=== PATIENT | male | born 1935 | race Caucasian/White ===

== ENCOUNTER 2017-11-07 18:32 | Inpatient (IN) | payer MEDICARE, OTHER, SELFPAY ==
[2017-11-01 10:20] VITALS: BMI 22.6
[2017-11-07] VITALS (13 sets, daily range): BP systolic 109–129; BP diastolic 58–82; PULSE 60–97; RESP 10–22; TEMP 36–36.8; O2SAT 94–98; BMI 22.6
[2017-11-07] MEDS: LACTATED RINGERS 1,000 ML 42 ML IV (11:22)
[2017-11-07] MEDS: fentaNYL 100 MCG/2 ML INJ 25 MCG IV ×3 (12:05→12:43)
--- NOTE | 2017-11-07 12:48 | PM.PREOP ---
Pre-operative Note Interval Note Pre-op Check: Yes History & Physical Reviewed by Physician and Yes Exam Performed Changes: No
[2017-11-07] MEDS: CEFAZOLIN 2 GM/100 ML FROZ.PIGGY IV ×2 (13:26→21:46)
--- NOTE | 2017-11-07 14:03 | SUR.OPER ---
Prone on gel padded OR table. Head in foam face cradle per anesthesia. Arms padded and tucked at sides per surgeon. Gel pad to knees, pillows x2 under low legs. Toes free. Padded safety strap to thighs over blanket and tape to low legs over blanket to secure. Yellow gel rolls under torso per surgeon.
[2017-11-07] MEDS: BUPIVACAINE 0.25% W/ EPI VIAL 50 ML INJ (14:16)
[2017-11-07] MEDS: BUPIVACAINE LIPOSOME 266 MG/20 ML VIAL INJ (14:16)
[2017-11-07] MEDS: THROMBIN (BOVINE) 5,000 UNIT VIAL 5000 UNIT TOP (14:19)
[2017-11-07] MEDS: SODIUM CHLORIDE 0.9% 1,000 ML, GENTAMICIN 80 MG IRR (14:20)
[2017-11-07] MEDS: VANCOMYCIN 1,000 MG VIAL 1000 MG TOP (14:20)
--- NOTE | 2017-11-07 17:05 | P.OP_ITS ---
Operative Date/Time/Diagnoses Date of procedure: 11/07/17 Time of procedure: 16:59 Pre-op diagnosis: Cervical stenosis with myelopathy Procedure & Clinicians Procedure: C4-5, C5-6, C6-7 laminectomy Use of microscope Same procedure as scheduled: Yes Indications: [age] year old male with intractable pain from stenosis. They had failed conservative management and requested operative intervention. Risks and benefits of surgery were discussed and appropriate consents were obtained. Surgeon: Daryl Solano Printing Technician: Kortney Cabrera Anesthesia Type: General Operative Notes Findings: none Closure Type: primary Implants & Drains: HV drain Applied: catheter Estimated Blood Loss (mL): 200 Blood products transfused: none Procedure in detail: Patient was brought to the operating room and intubated on the table. He was rolled over on the well-padded prone position on the table. A time-out was performed. Preoperative antibiotics were given. The neck was prepped and draped in standard sterile fashion. Using fluoroscopy for localization, a 6 cm incision was made in the midline. We used Bovie to dissect through the cervical nuchal fascia and then subperiosteally dissect the paraspinal muscles off the right side. A marker was placed and x-ray was taken to confirm positioning. We then brought in the microscope. A right-sided laminectomy was performed at C4 -5, C5-6 and C6-7. We did extensive foraminotomies at all 3 levels to open up the neural foramen. The C4-5 level had extremely large facet cyst occupying almost half the spinal canal. We carefully had to dissect this off the dura. At the end of this the canal was wide open and the dura had filled back in the divot where the facet cyst had been. Everything was open when probed with a nerve hook. There was a fair amount of bleeding coming from the epidurals in the neural foramen but this brought under control with Gel-Foam and patties in the foramen as well as using FloSeal. The wound was copiously irrigated. The fascia was then closed in layers. Vancomycin powder was placed in the wound. The superficial and the skin were closed. Sterile dressing was placed. Patient was rolled over extubated brought to recovery room with no complications. Complications: none Condition: stable Disposition: PACU Plan for aftercare: Overnight admission for 1-2 days.
[2017-11-07] MEDS: HYDROMORPHONE 1 MG INJ 0.5 MG IV (18:35)
[2017-11-07] MEDS: LACTATED RINGERS 1,000 ML 125 ML IV (19:28)
[2017-11-07] MEDS: IPRATROPIUM 0.5 MG/3 ML NEB INH (19:50)
[2017-11-07] MEDS: SENNOSIDES 8.6 MG TABLET 17.2 MG PO (21:45)
[2017-11-07] MEDS: ACETAMINOPHEN 325 MG TABLET 975 MG PO (21:45)
[2017-11-07] MEDS: DOCUSATE 100 MG CAPSULE PO (21:45)
[2017-11-08] MEDS: LACTATED RINGERS 1,000 ML 125 ML IV (02:42)
[2017-11-08 03:21] VITALS: BP 106/69; PULSE 85; RESP 16; TEMP 36.7; O2SAT 96
[2017-11-08] MEDS: CEFAZOLIN 2 GM/100 ML FROZ.PIGGY IV (04:55)
[2017-11-08] MEDS: HYDROMORPHONE 1 MG INJ 0.2 MG IV (05:44)
--- NOTE | 2017-11-08 05:47 | PC.NURSE ---
pt alert and oriented. R.shoulder pain 5/10, administered 0.2mg IV dilaudid. pt reports he is allergic to oxycodone, but he takes percocet at home.
[2017-11-08 06:19] LABS: Hematocrit 30.3 % (41-53); Hemoglobin 10.3 g/dL (13.5-17.5)
--- NOTE | 2017-11-08 07:35 | PM.PNPO.1 ---
Subjective Date Patient Seen: 11/08/17 Time Patient Seen: 07:35 Interval history: The hands feel less tingly but he still is having a fair amount of pain in the right arm. Exam Vital Signs (past 8 hours): - 11/07/17 23:45 11/08/17 03:21 Temperature 98.1 F 98.0 F Pulse Rate 97 H 85 Respiratory Rate 22 16 Blood Pressure 115/73 106/69 Pulse Oximetry 97 96 Oxygen Delivery Method Room Air Oxygen Flow Rate 2 Const Orientation: alert and oriented x3 Skin Other: Dressing mild drainage. No drainage in hemo VAC. 5/5 motor both upper extremities except for 4/5 right sanding machine tender and intrinsics, unchanged Objective Labs Result Diagrams: 11/08/17 06:00 Labs: Laboratory Results - last 24 hr 11/08/17 06:00 Hgb 10.3 L Hct 30.3 L Assessment & Plan Post-op Postoperative Procedures Operation Date: 11/07/17 12:15 Actual Procedures Side Surgeon p C4-5,C5-6,C6-7 Posterior Laminectomies Daryl Solano MD stable after surgery. We will get him up with physical therapy. If he is doing well discharge home today. We discussed his anticoagulation. He can restart his Lovenox this evening, but I wanted at least 24 hr after surgery before starting anticoagulation. He also is going to start back on the Coumadin today. Quality VTE Deep Vein Thrombosis/Pulmonary Embolism Present on Admission: No
[2017-11-08 07:45] VITALS: BP 105/64; PULSE 76; RESP 16; TEMP 36.5; O2SAT 97
[2017-11-08] MEDS: DOCUSATE 100 MG CAPSULE PO (09:24)
[2017-11-08] MEDS: ACETAMINOPHEN 325 MG TABLET 975 MG PO (09:24)
[2017-11-08] MEDS: IPRATROPIUM 0.5 MG/3 ML NEB INH (09:24)
[2017-11-08] MEDS: ATORVASTATIN 20 MG TABLET 40 MG PO (09:24)
[2017-11-08 09:25] VITALS: PULSE 73; RESP 13; O2SAT 97
[2017-11-08] MEDS: ONDANSETRON 4 MG/2 ML INJ IV (09:28)
--- NOTE | 2017-11-08 09:30 | OT.IP.EVAL ---
Current Diagnoses Spinal stenosis, cervical region (11/07/17) Surgery Performed Operation Date: 11/07/17 12:15 Actual Procedures p C4-5,C5-6,C6-7 Posterior Laminectomies - Daryl Solano MD Past Medical History (Last Updated 11/01/17 @ 11:59 by Cyndie Barclay, RN) 3rd brn w/ loss-fngr/thmb (Acute) Asthma (Acute) BPH (benign prostatic hyperplasia) (Acute) Back pain (Acute) Bifascicular block (Acute ~2013) Bruises easily (Acute) Cervical stenosis of spinal canal (Acute) Chronic back pain (Acute) Depression (Acute) Dyspnea (Acute) Facet hypertrophy of cervical region (Acute) GERD (gastroesophageal reflux disease) (Acute) History of anemia (Acute) History of cardioversion (Acute) History of migraine headaches (Acute) Hyperkalemia (Acute) Hyperlipidemia (Acute) Intractable back pain (Acute) Leg swelling (Acute) Leg weakness, bilateral (Acute) Mitral valve prolapse (Acute) Neck pain (Acute) Numbness and tingling in both hands (Acute) Osteoarthritis (Acute) Pacemaker (Acute 05/06/14) Paroxysmal atrial flutter (Acute) Primary hypothyroidism (Acute) Prosthetic mitral valve regurgitation (Acute) SSS (sick sinus syndrome) (Acute) Stroke (Acute) Suspicious (Acute) Weakness of both arms (Acute) Weight loss (Acute) Surgical History (Last Updated 11/01/17 @ 11:28 by Cyndie Barclay, RN) H/O hernia repair (Acute) H/O maze procedure (Acute) H/O tricuspid valve repair (Acute) Previous back surgery (Acute) S/P TURP (status post transurethral resection of prostate) (Acute) Occupational Therapy Inpatient Evaluation/Re-Eval M1 PT/OT-IP Prior Functional Status Start: 11/08/17 15:28 Freq: NEEDED Status: Active Protocol: Document 11/08/17 09:30 PJM (Rec: 11/08/17 15:55 PJM [id number]) Medical Review Prior Functional Status Medical History Reviewed Yes Diet/Fluid Consistency Regular Communication able make needs known Mobility and Gait pt stated that he is modified independent with all mobilities and ambulation using 4WW outdoors and either uses 4WW/FWW indoors. Activities of Daily Living and IADL's modified independent with all ADLs Prior Functional Level (Other details) has a ingredient scaler that comes in to assist with cleaning, laundry grocery shopping 1x week Social History Household Members none Living Arrangements House Number of Floors (Floors) One Floor Number of Stairs To Enter/Railing? 2 with B rails Home Environment Walk in Shower Home Equipment Front Wheel Walker Four Wheel Walker Shower Seat without Backrest Hand Held Shower Long Handled Shoe [employer] Staffing Account Manager Grab Bars In Shower Employment Status Retired Additional Social History Comment pt declines sock aid as he does not wear socks often, has slip on shoes M2 OT-IP Current Condition Start: 11/08/17 15:28 Freq: Status: Active Protocol: Document 11/08/17 09:30 PJM (Rec: 11/08/17 15:55 PJM [id number]) Occupational Therapy Current Condition Current Condition Evaluation Date 11/08/17 Treatment Diagnosis decreased self care and functional mobility after C4-7 lami Diagnosis Onset Date 11/07/17 Post Operative Precautions Cervical Spine Precautions Soft Collar for Comfort Soft Collar at all Times No Heavy Lifting Log Roll M3 OT- IP Subjective and Pain Start: 11/08/17 15:28 Freq: Status: Active Protocol: Document 11/08/17 09:30 PJM (Rec: 11/08/17 15:55 PJM [id number]) OT- Subjective Occupational Therapy Visit Type Type Initial Evaluation Visit Start Time 08:51 Visit Stop Time 09:30 Total Visit Minutes 39 Notes session discontinued due to nausea/vomiting, RN in to provide IV anti nausea meds Occupational Therapy Visit Comments Patient Comments My sister and S.O. will stay with me for a week when I get home. 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) OT Pain Assessment Pain When Pain Assessed After Treatment Pain Present Pain Present Pain Reported Location Right Shoulder Intensity 3 Scale Used Numeric (1 - 10) Description Aching Pain Behaviors Facial Grimacing Guarding Management Techniques Apply Cold Re-positioning Timing of Activity with Medications Posterior Neck Intensity 2 Scale Used Numeric (1 - 10) Description Acute Pain Behaviors Guarding Management Techniques Re-positioning Timing of Activity with Medications M4 OT- IP ADL's Start: 11/08/17 15:28 Freq: Status: Active Protocol: Document 11/08/17 09:30 PJM (Rec: 11/08/17 15:55 PJM [id number]) OT KWS-Mems-Aktxnlo General Evaluation Self-Feeding Ability Independent OT ADL-Dressing General Eval Lower Body Dressing Ability Minimal Assistance Areas Needing Assistance Underpants/Brief Shoes Assistive Devices Dressing Assistive Devices Staffing Account Manager Comments OT Dressing Comments Pt does not wear socks often. Pt SBA donning slip on shoes. Min assist to don brief with motorcoach operator after roland removed by RN. M5 OT- IP IADL's Start: 11/08/17 15:28 Freq: Status: Active Protocol: Document 11/08/17 09:30 PJM (Rec: 11/08/17 15:55 PJ [id number]) OT-Instrumental Activities of Daily Living Deficits IADL Deficits Identified Deficits Home Safety Awareness Awareness of Need for Assistance at Home Good Awareness Ability to Problem Solve Emergency Able to Problem Solve Situations Medication Management Medication Management No Deficits Identified Money Management Money Management No Deficits Identified Meal Preparation Meal Preparation Caregiver Provides Assist Meal Preparation Comments S.O. and sister to assist PRN Children'S Ministry Director Children'S Ministry Director Caregiver Provides Assist Children'S Ministry Director Comments S.O., sister and paid ingredient scaler to assist PRN Driving Driving Caregiver Provides Assist Driving Comments S.O. and sister to assist until pt able M6 OT- IP Functional Cognition Start: 11/08/17 15:28 Freq: Status: Active Protocol: Document 11/08/17 09:30 PJM (Rec: 11/08/17 15:55 [facility] [id number]) Cognitive Factors Limiting Selfcare Function Cognitive Ability Level of Alertness Alert Patient Orientation Name Age Birthday Month Date Year Day of Week Place Situation Attention Span Ability Capable of Focused Attention Capable of Sustained Attention Ability to Follow Commands Able to Follow One Step Commands Memory Description No Deficits Noted Safety Awareness No Deficits Noted Problem Solving Ability Needs Assist to Identify Solutions Cognitive Comments Cognitive Assessment Comments Pt appears to be at cognitive baseline. OT- Vision and Hearing OT- Hearing Assessment OT- Hearing Assessment WFL OT- Vision Assessment Visual Acuity Glasses All The Time Vision Assessment Comments Pt reports some blurred vision since surgery, may be medication related. M7 OT- IP Mobility and Balance Start: 11/08/17 15:28 Freq: Status: Active Protocol: Document 11/08/17 09:30 PJM (Rec: 11/08/17 15:55 PJ [id number]) OT- Bed Mobility Assessment Rolling Type of Rolling Roll to Right Level of Assistance Independent Head of Bed Elevated Supine to Sit Supine to Sit Assist Independent Scooting Scooting to Edge of Bed Independent OT-Transfer Assessment Sit to and From Stand Sit to and from Stand Contact Guard Assistance Transfers Transfer Ability Contact Guard Assistance Technique Transfer Destination Chair Transfer Technique Stand Step Pivot Devices Transfer Assistive Devices Gait Belt Front Wheeled Walker Comments Mobility Comments Pt sleeps with 30 degree wedge on bed due to GERD. Provided education re: C spine precautions and log rolling. OT- Gait Assessment Comments Gait Ability Comments See P.T. assessment OT- Balance Assessment Sitting Balance and Reactions Static Sitting Balance Ability Good Dynamic Sitting Balance Ability Fair Standing Balance and Reactions Static Standing Balance Ability Good Dynamic Standing Balance Ability Fair Comments Other Balance Tests/Deviations/Treatment with FWW : M8 OT- IP Objective Assessments Start: 11/08/17 15:28 Freq: Status: Active Protocol: Document 11/08/17 09:30 PJM (Rec: 11/08/17 15:55 PJM [id number]) OT Gross Range of Motion Upper Extremity Range of Motion Assessment Right Impaired ROM Impairments Self limits R shoulder scaption to about 70 degrees due to chronic radiculopathy OT Strength Upper Extremity Strength Assessment Right Impaired Shoulder R NT due to pain, recent surgery Elbow NT Hand 4/5 Hand Model Photographers' Strength Hand Dominance Right Comments Strength Comments Pt has intrinsic weakness and palmar atrophy in B hands R > L. R hand gross grasp 4/5, lumbricals 4-/5. Pt can oppose all fingers to R thumb with min difficulty opposing to 5th finger. Pt uses tenodesis to facilitate MP/IP extension in R hand. OT- Coordination Assessment Upper Extremity Finger to Nose Test Right UE Impaired Finger Tapping Test Right UE Impaired Comments Coordination Comments RUE gross coordination impaired by shoulder pain and fine coordination impaired by intrinsic weakness and numbness in all fingertips. OT-Muscle Tone Assessment Muscle Tone WNL Yes OT Sensation Assessment Location Left All Fingers Light Touch Impaired Right All Fingers Light Touch Impaired Sensation Description Numbness Comments Summary Comments Pt reports all fingertips numb in B hands R>L Edema Edema Absent Edema Comments in BUE's M9 OT- IP Assessment and Plan Start: 11/08/17 15:28 Freq: Status: Active Protocol: Document 11/08/17 09:30 PJM (Rec: 11/08/17 15:55 PJM [id number]) OT Summary Assessment and Plan Potential Rehabilitation Potential Good Analytic Complexity at Evaluation Moderate Summary OT Impairments Pain Range of Motion Strength Balance Coordination Sensation Functional Mobility Dressing Toileting Bathing Toilet Transfers Shower Transfers Assessment Summary Moderate complexity OT assessment due to neurologic deficits in BUE due to C spine compression. Participation limited this session by nausea /vomiting. RN aware. Pt currently has performance deficits in transfers with P.T. eval of gait pending. Pt also has performance deficits in dressing, bathing and toileting. Plan 1 additional OT visit later this AM when nausea improves and pt's sister and S.O. here for education. Goals Grooming Goal Standby Assistance Dressing Goal Standby Assistance Bathing Goal Standby Assistance Toilet Transfer Goal Standby Assistance Shower Transfer Goal Contact Guard Assistance Patient/Caregiver Education Goal Demonstrate Post-Op Precautions Caregiver Independent Assisting Patient Days to Meet Goals 1 Frequency of Treatment Frequency Of Treatment Twice a Day Treatment Plan OT Treatment Plan ADL Training Patient/Family Education Discharge Planning Discharge Recommendations OT Discharge Recommendations Home with 10/10 Assist Other Discharge Recommendations OT services including R hand strengthening and self care, IADL training
--- NOTE | 2017-11-08 10:07 | PT.IPTN ---
Current Diagnoses Spinal stenosis, cervical region (11/07/17) Surgery Performed Operation Date: 11/07/17 12:15 Actual Procedures p C4-5,C5-6,C6-7 Posterior Laminectomies - Daryl Solano MD Physical Therapy Treatment Note M2 PT-IP Current Condition Start: 11/08/17 11:27 Freq: NEEDED Status: Active Protocol: Document 11/08/17 10:07 AB (Rec: 11/08/17 11:47 AB [id number]) Physical Therapy Current Condition Current Condition Evaluation Date 11/08/17 Treatment Diagnosis s/p C4-5, C5-6, C6-7 laminectomy; ms weakness Onset Date 11/07/17 Precautions Cervical Spine Precautions Soft Collar for Comfort Soft Collar at all Times Rigid Collar No Heavy Lifting Log Roll Brace soft collar for comfort M3 PT-IP Subjective Start: 11/08/17 11:27 Freq: NEEDED Status: Active Protocol: Document 11/08/17 10:07 AB (Rec: 11/08/17 11:47 AB [id number]) Subjective Physical Therapy Visit Type Type Initial Evaluation Visit Start Time 10:07 Visit Stop Time 10:47 Total Visit Minutes 40 Number of TELEGRAPHIC SERVICE DISPATCHER Visits 0 Physical Therapy Visit Comments Patient Comments pt agreeable to do PT and wants to go home Therapy Pain Assessment Pain When Pain Assessed During Mobility Pain Present Pain Present Pain Reported Location Right Shoulder Intensity 8 Scale Used Numeric (1 - 10) Pain Management Techniques Apply Cold Timing of Activity with Medications M4 PT-IP Mobility and Gait Start: 11/08/17 11:27 Freq: NEEDED Status: Active Protocol: Document 11/08/17 10:07 AB (Rec: 11/08/17 11:47 AB [id number]) PT-Bed Mobility Assessment Rolling Type of Rolling Log Rolling Level of Assist Standby Assistance Supine to Sit Supine to Sit Standby Assistance Sit to Supine Sit to Supine Standby Assistance Scooting Scooting to Edge of Bed Standby Assistance PT-Transfer Assessment Sit to and From Stand Sit to and from Stand Contact Guard Assistance Equipment Transfer Assistive Device Gait Belt Front Wheeled Walker Orthotic/Prosthetic Devices or Brace: Yes Transfers Transfer Destination Bed Transfer Technique Stand Step Pivot Transfer Ability Level of Assist Contact Guard Assistance Gait Assessment Gait Gait Assistance Required: Contact Guard Assist Distance (Feet) (feet) 125 Able to Maintain Weight Bearing Status Yes During Gait Assistive Devices Assistive Device Gait Belt Front Wheeled Walker Orthotic/Prosthetic Devices or Brace: Yes Gait Deviations General Gait Pattern Antalgic Factors Limiting Gait Function Factors Limiting Gait Function Decreased Activity Tolerance Decreased Sensation Decreased Strength Limited Range of Motion Pain Poor Balance Poor Safety Awareness Stair Climbing Assessment Evaluation Level of Assist On Stairs Contact Guard Assistance Devices Stair Climbing Assistive Devices Left Railing Right Railing Technique/Endurance Stair Climbing Direction Ascend and Descend Stair Climbing Technique Step Over Step Number of Steps Climbed 3 Query Text: Stair Climbing Set # Repetitions (reps) 1 Comments Stair Climbing Comments caregiver training with daughter conducted for stair climbing and ambulation and was able to assist pt safely PT-Balance Assessment Sitting Balance and Reactions Static Sitting Balance Ability Good Dynamic Sitting Balance Ability Good Standing Balance and Reactions Static Standing Balance Ability Fair Dynamic Standing Balance Ability Fair Device Used FWW M5 PT-IP Objective Assessments Start: 11/08/17 11:27 Freq: NEEDED Status: Active Protocol: Document 11/08/17 10:07 AB (Rec: 11/08/17 11:47 AB [id number]) Orientation Orientation/Cognition Level of Alertness Alert Orientation Name Age Birthday Month Date Year Day of Week Place Situation Safety Awareness Understands Safety Issues Gross Range of Motion Lower Extremity ROM Assessment Within Functional Limits Strength Lower Extremity Strength Assessment Within Functional Limits Sensation Assessment Sensation Gross Sensation Right UE Impaired Left UE Impaired Sensation Description Tingling M6 PT-IP Treatment Start: 11/08/17 11:27 Freq: NEEDED Status: Active Protocol: Document 11/08/17 10:07 AB (Rec: 11/08/17 11:47 AB [id number]) Physical Therapy Treatment Education Education Provided Precautions Post-Op Packet Safety Other Treatments Other Treatment Performed caregiver training conducted with pt's daughter and significant other: use of safety belt, precautions, transfers, ambulation and stair climbing M7 PT-IP Assessment and Plan Start: 11/08/17 11:27 Freq: NEEDED Status: Active Protocol: Document 11/08/17 10:07 AB (Rec: 11/08/17 11:47 AB [id number]) PT Summary Assessment and Plan Potential Rehabilitation Potential Good Status of Condition at Evaluation Stable Summary Impairments Pain ROM Strength Balance Coordination Sensation Tone Cognition Bed Mobility Transfers Gait Activity Tolerance Assessment Summary pt requiring CGA with transfers and ambulation. recommending use of FWW at this time for safety and pt agreed. caregiver training conducted and pt's daughter was able to assist pt safely. pt plans to go home today and may go home with assist at home. Goals Bed Mobility Goal Independent Transfer Goal Independent Gait Goal Independent Gait Distance 200 Other Goals up/down 2 steps using bilateral rails SBA Days to Meet Goals 2 Frequency of Treatment Frequency Of Treatment Twice a Day Treatment Plan Physical Therapy Treatment Plan Bed Mobility Training Transfer Training Gait Training Therapeutic Exercise Balance Retraining Post Op Education Discharge Planning Hot or Cold Pack Neuromuscular Re-ed Coordination Retraining Manual Therapy Recommendations To Nursing Amount of Assist Needed 1 Person Assist Discharge Recommendations PT Discharge Recommendations Home with Assistance
[2017-11-08] MEDS: MULTIVITAMIN 1 TABLET 1 TAB PO (10:13)
[2017-11-08] MEDS: METOPROLOL 12.5 MG TABLET PO (10:13)
[2017-11-08] MEDS: PANTOPRAZOLE 40 MG TABLET PO (10:13)
[2017-11-08] MEDS: LEVOTHYROXINE 112 MCG TABLET PO (10:13)
--- NOTE | 2017-11-08 11:28 | OT.IP.TRT ---
Current Diagnoses Spinal stenosis, cervical region (11/07/17) Surgery Performed Operation Date: 11/07/17 12:15 Actual Procedures p C4-5,C5-6,C6-7 Posterior Laminectomies - Daryl Solano MD Occupational Therapy Treatment Note M2 OT-IP Current Condition Start: 11/08/17 15:28 Freq: Status: Active Protocol: Document 11/08/17 09:30 PJM (Rec: 11/08/17 15:55 PJM [id number]) Occupational Therapy Current Condition Current Condition Evaluation Date 11/08/17 Treatment Diagnosis decreased self care and functional mobility after C4-7 lami Diagnosis Onset Date 11/07/17 Post Operative Precautions Cervical Spine Precautions Soft Collar for Comfort Soft Collar at all Times No Heavy Lifting Log Roll M3 OT- IP Subjective and Pain Start: 11/08/17 15:28 Freq: Status: Active Protocol: Document 11/08/17 11:28 PJM (Rec: 11/08/17 16:06 PJM [id number]) OT- Subjective Occupational Therapy Visit Type Type Treatment Note Visit Start Time 10:53 Visit Stop Time 11:28 Total Visit Minutes 35 Notes Pt's S.O. and sister here for education this session. Occupational Therapy Visit Comments Patient Comments My stomach feels beter now. Patient/Caregiver Goals to go home before lunchtime OT Pain Assessment Pain When Pain Assessed After Treatment Pain Present Pain Present Pain Reported Location Right Shoulder Intensity 3 Scale Used Numeric (1 - 10) Description Aching Management Techniques Apply Cold Distraction Re-positioning M4 OT- IP ADL's Start: 11/08/17 15:28 Freq: Status: Active Protocol: Document 11/08/17 11:28 PJM (Rec: 11/08/17 16:06 PJM [id number]) OT ADL-Grooming General Evaluation Grooming Ability Standby Assistance Comments OT Grooming Comments Provided education re: C spine body mechanics OT ADL-Oral Care General Eval Oral Care Ability Standby Assistance Comments Oral Care Comments Provided education re: C spine body mechanics and basin provided Re: home use OT ADL-Dressing General Eval Upper Body Dressing Ability Minimal Assistance Lower Body Dressing Ability Standby Assistance Areas Needing Assistance Pants/Shorts Assistive Devices Dressing Assistive Devices Long Handled Shoe Horn Leather Production Machine Operator Comments OT Dressing Comments Pt demonstrating improved ability to don pants with solid die cutter. Improved standing balance and pt SBA for standing to pull pants over hips. Indep with buttoning waistband. Pt declines sock aid, has long shoe horn. Provided education, resource for obtaining button hook for shirt buttons at pt request. OT ADL-Toileting General Evaluation Toileting Ability Standby Assistance Comments OT Toileting Comments Provided education re: body mechanics and toilet paper aids. OT ADL-Bathing Bathing Type Bathing Type Shower Devices Bathing Equipment Long Handled Sponge or Community Planning Technician Held Shower Sprayer Comments OT Bathing Comments Provided education to pt and S.O. re: C spine precautions during showering and they verbalize understanding. M5 OT- IP IADL's Start: 11/08/17 15:28 Freq: Status: Active Protocol: Document 11/08/17 09:30 PJM (Rec: 11/08/17 15:55 PJM [id number]) OT-Instrumental Activities of Daily Living Deficits IADL Deficits Identified Deficits Home Safety Awareness Awareness of Need for Assistance at Home Good Awareness Ability to Problem Solve Emergency Able to Problem Solve Situations Medication Management Medication Management No Deficits Identified Money Management Money Management No Deficits Identified Meal Preparation Meal Preparation Caregiver Provides Assist Meal Preparation Comments S.O. and sister to assist PRN Visual Educator Visual Educator Caregiver Provides Assist Visual Educator Comments S.O., sister and paid clipper machine operator to assist PRN Driving Driving Caregiver Provides Assist Driving Comments S.O. and sister to assist until pt able M7 OT- IP Mobility and Balance Start: 11/08/17 15:28 Freq: Status: Active Protocol: Document 11/08/17 11:28 PJM (Rec: 11/08/17 16:06 PJM [id number]) OT-Transfer Assessment Sit to and From Stand Sit to and from Stand Standby Assistance Technique Transfer Destination Car Shower Stall Devices Transfer Assistive Devices Front Wheeled Walker Comments Mobility Comments Provided education re: car and shower stall transfers. OT- Gait Assessment Comments Gait Ability Comments See P.T. notes OT- Balance Assessment Sitting Balance and Reactions Static Sitting Balance Ability Good Dynamic Sitting Balance Ability Good Standing Balance and Reactions Static Standing Balance Ability Good Dynamic Standing Balance Ability Good Comments Other Balance Tests/Deviations/Treatment standing with FWW : M9 OT- IP Assessment and Plan Start: 11/08/17 15:28 Freq: Status: Active Protocol: Document 11/08/17 11:28 PJM (Rec: 11/08/17 16:06 PJM [id number]) OT Summary Assessment and Plan Potential Rehabilitation Potential Good Summary Assessment Summary Pt's nausea has resolved and all OT education completed with pt and family re: C spine precautions and adapted ADLS and R hand strengthening suggestions. They verbalize and demonstrate understanding. Frequency of Treatment Frequency Of Treatment Discharge Discharge Recommendations OT Discharge Recommendations Home with / Assist Home Health Other Discharge Recommendations OT followup
[2017-11-08 11:45] VITALS: BP 112/62; PULSE 63; RESP 16; TEMP 36.7; O2SAT 98
--- NOTE | 2017-11-08 12:15 | PC.NURSE ---
Pt dressed and ready for discharge home with family. Reviewed d/c instructions, prescriptions, signs and symptoms of infection, follow up, and cervical collar use. Pt out via w/c by NEW ORDER CLERK to pov with family and all belongings.
--- NOTE | 2017-11-08 14:47 | CM.IDA ---
Addendum entered by JUAN RAMON Ignacio 11/08/17 15:32: In addition: Pt hires assist w/higher ADLs; landscaping, housecleaning, chores. Pt has a private cg he will ask to increase hours. Original Note: DCP Assessment Note: Pt is an 82 yo male, resident of [place]. Pt is SDC for back/spinal surgery. Pt's PCP is Dr Berry Hoyt; Insurance is Medicare/Commercial. Met w/pt, SO Lor and sister Debora, explained role. Pt was expected to be DC today and so planned was reviewed. Pt lives alone, has assist from SO and family when needed. Pt has had [facility] in the past and asked if he could have them again for some assist in transitioning home. PT/OT/RN/ARM MAKER. OT Adriana was beginning her eval and agreed HH was a good idea. Requested that surgery center administrator Martine complete this referral. F2F signed and HH order provided to include in referral packet. Pt was gone when this MRI MANAGER returned to ; placed call to Pt's cell, updated pt and SO w/HH f/u through [facility], latest should be Monday11/10/17. Gave [facility] P# [phone] for follow up or questions. JUAN RAMON Ignacio Discharge Planning/Care Management CM Discharge Assessment Start: 11/08/17 14:33 Freq: Status: Discharge Protocol: Document 11/08/17 14:36 RUDDY (Rec: 11/08/17 14:47 RUDDY [id number]) Discharge Planning Assessment Assigned Security Control Assessor RUDDY DPWEN/Assigned Designee Name Gardenia Valenzuela dtr Contact Information [phone] Advance Directives? Yes History Provided By Patient Significant Other Prior Living Arrangements House Household Members none Comment Has S.O. but does not live with her Type of transporation used prior to Relies on Others admit Comment Lately d/t pain, requires assist. Independent with ADL's Yes: Mostly indp at baseline. Recent, worsening back pain/ neck pain Is patient alert and oriented? Yes Comment fecal and urinary incontinence . Caregiver for Another No Patient/Family Preference Home with Home Health Barriers to Discharge No Comment [facility] Discharge Plan Home with Home Health Transportation Arrangement Family Referrals Initiated Home Health If patient plan is home with home health Yes : Has signed face to face form been completed? Medicare Choice List Provided Yes SNF/HH Preference [facility] Contact Name/ Has Agency SNF been contacted Yes Whiteboard Updated in Patient Room with Yes name and ext. # of Security Control Assessor
== END 2017-11-08 12:17 | disposition home health service (06) | DRG 519 ==
LOC: OR 11-08 12:01
PROVIDERS: Admitting Provider Orthopaedic Surgery; Visit Provider Orthopaedic Surgery
PROC: 0PB30ZZ Excision of Cervical Vertebra, Open Approach (ICD-10-PCS; principal; 2017-11-07 12:15)
DX: M48.02 Spinal stenosis, cervical region (principal); M47.12 Other spondylosis with myelopathy, cervical region; E07.9 Disorder of thyroid, unspecified; Z86.73 Personal history of transient ischemic attack (TIA), and cerebral infarction without residual deficits; E03.9 Hypothyroidism, unspecified; G43.909 Migraine, unspecified, not intractable, without status migrainosus; K21.9 Gastro-esophageal reflux disease without esophagitis; F32.9 Major depressive disorder, single episode, unspecified; J45.909 Unspecified asthma, uncomplicated; Z79.01 Long term (current) use of anticoagulants; I49.5 Sick sinus syndrome; M85.48 Solitary bone cyst, other site
CPT/HCPCS: 36415; 85014; 85018; 94640; 97161; 97166; 97530; 97535; C9290; J0330; J0690; J1100; J1170; J2250; J2405; J2704; J3010

== ENCOUNTER 2018-04-10 09:50 | Inpatient (IN) | payer MEDICARE, OTHER, SELFPAY ==
[2017-11-07 18:23] VITALS: BMI 22.6
[2018-04-02 16:23] VITALS: BMI 22.6
[2018-04-08] MEDS: CEFAZOLIN 2 GM/100 ML FROZ.PIGGY IV (21:00)
[2018-04-10] VITALS (12 sets, daily range): BP systolic 109–123; BP diastolic 67–78; PULSE 60–80; RESP 14–20; TEMP 36.1–37.1; O2SAT 92–100; BMI 22.6
--- NOTE | 2018-04-10 | DI.RAD.S_ITS ---
PROCEDURE: XR LUMBAR SPINE 1V INDICATIONS: L1-2, L2-3 LAMINECTOMY TECHNIQUE: 1 view of the lumbar spine were acquired. COMPARISON: [facility], CT, CT LUMBAR SPINE WITHOUT CONTRAST, 05/25/2017, 15:34. [facility], CR, XR LUMBAR SPINE 2 OR 3 VIEWS, 05/25/2017, 7:49. [facility], NM, NM BONE SCAN WHOLE BODY, 06/22/2017, 13:09. FINDINGS: There is a surgical probe at the level of L2 and L3. There is severe degenerative disc disease at L2-L3 and L5-L5, moderate degenerative disc disease at L5-S1 and mild degenerative disc disease at L3-L4. There is severe facet arthropathy in the lower lumbar spine. IMPRESSION: A surgical probe at the level of L2-L3. Dictated by: Caity Suero M.D. on 04/10/2018 at 13:43 Approved by: Caity Suero M.D. on 04/10/2018 at 13:45
[2018-04-10] MEDS: LACTATED RINGERS 1,000 ML 42 ML IV (10:30)
--- NOTE | 2018-04-10 11:25 | PM.PREOP ---
Pre-operative Note Interval Note History & Physical reviewed/Exam performed by Physician: Yes Changes to H&P: No
[2018-04-10] MEDS: CEFAZOLIN 2 GM/100 ML FROZ.PIGGY IV (12:02)
--- NOTE | 2018-04-10 12:34 | SUR.OPER ---
Prone on spine table, head in foam head support, padded chest and pelvic supports, gel pad at knees, lower legs supported by pillows; nipples, genitalia and toes free of pressure, arms secured on foam padded arm boards at <90 degrees abduction. Tape over blanket at thigh secured to table.
[2018-04-10] MEDS: VANCOMYCIN 1,000 MG VIAL 1000 MG TOP (12:51)
[2018-04-10] MEDS: BUPIVACAINE 0.25% (PF) 8 ML, fentaNYL 100 MCG INJ (12:53)
[2018-04-10] MEDS: SODIUM CHLORIDE 0.9% 1,000 ML, GENTAMICIN 80 MG IRR ×2 (12:55)
--- NOTE | 2018-04-10 13:32 | PM.OP.1 ---
Operative Date/Time/Diagnoses Date of procedure: 04/10/18 Time of procedure: 13:33 Pre-op diagnosis: Lumbar stenosis with radiculopathy Post-op diagnosis: same Procedure & Clinicians Procedure: L1-2, L2-3 laminectomy Use of microscope Placement of epidural catheter Same procedure as scheduled: Yes Indications: [age] year old male with intractable pain from stenosis. They had failed conservative management and requested operative intervention. Risks and benefits of surgery were discussed and appropriate consents were obtained. Surgeon: Daryl Solano Athletic Events Scorer: Jodi Bedoya Anesthesia Type: General Operative Notes Findings: None Closure Type: primary Specimen(s): none sent Applied: catheter Estimated Blood Loss (mL): 20 Procedure in detail: Patient was brought to the operating room and intubated on the table. They were rolled over on the well-padded prone position on the [place] table. A time-out was performed. Preoperative antibiotics were given. The back was prepped and draped in standard sterile fashion. Using fluoroscopy for localization, a 5 cm incision was made in the midline. We used Bovie to dissect through the lumbodorsal fascia and then subperiosteally dissect the paraspinal muscles off the left side. A marker was placed and x-ray was taken to confirm positioning. We then brought in the microscope. A left-sided laminectomy was performed at L1-2 and L2-3. We carefully depressed the dura (we were well below the conus) and reached across the midline to decompress the opposite side. The neural foramen were cleared out. At the end, we could reach with the ball probe cephalad and caudally across the midline and to the foramen and everything was opened. The wound was irrigated. An epidural catheter was prepared with 8 mL of 0.25% Marcaine and 100 mcg of fentanyl. The dura was carefully depressed and the catheter was advanced 6 cm cephalad underneath remaining lamina without resistance. The fascia was then closed in layers. The epidural catheter was injected without complications. Vancomycin powder was placed in the wound. The superficial and the skin were closed. Sterile dressing was placed. Patient was rolled over extubated brought to recovery room with no complications. Complications: none Condition: stable Disposition: PACU Plan for aftercare: Overnight admission. Up with physical therapy. Can restart his anticoagulation tomorrow with a Lovenox bridge and getting back on Coumadin.
[2018-04-10] MEDS: fentaNYL 100 MCG/2 ML INJ 50 MCG IV (14:05)
[2018-04-10] MEDS: HYDROCODONE/ACET 5/325 TABLET 2 TAB PO ×2 (15:41→21:00)
[2018-04-10] MEDS: LACTATED RINGERS 1,000 ML 125 ML IV ×2 (16:10→23:41)
[2018-04-10] MEDS: WARFARIN 3 MG TABLET PO (17:42)
--- NOTE | 2018-04-10 19:30 | PC.NURSE ---
Addendum entered by Isabella Velazquez R.N. 04/10/18 22:25: Pt med at 2100 w/[place] w/good relief Resting quietly this evening. IVF continuie as per orders. Vigil cath patent clear yellow urine Stable post op course. Call light w/in reach, bed alarm on for pt safety. Continue w/plan of care. Original Note: Pt resting quietly at this time. SpO2 98% 2L. Med @ 1540 w/[place] for discomfort w/ good relief. Surgical dsg CDI. Vigil cath patent clear urine. SCD in place. Stable post op course. Call light w/in reach, bed alarm on fore pt safety.
[2018-04-10] MEDS: DOCUSATE 100 MG CAPSULE PO (20:44)
[2018-04-10] MEDS: SENNOSIDES 8.6 MG TABLET 17.2 MG PO (20:44)
[2018-04-10] MEDS: PANTOPRAZOLE 40 MG TABLET PO (20:45)
[2018-04-10] MEDS: GABAPENTIN 300 MG CAPSULE PO (21:05)
[2018-04-10] MEDS: METOPROLOL IR 25 MG TABLET 12.5 MG PO (21:08)
[2018-04-10] MEDS: ONDANSETRON 4 MG/2 ML INJ IV (23:37)
[2018-04-10] MEDS: KETOROLAC 30 MG/ML VIAL IV (23:50)
[2018-04-11] VITALS (9 sets, daily range): BP systolic 88–115; BP diastolic 53–74; PULSE 62–69; RESP 15–18; TEMP 36.4–37; O2SAT 94–99
[2018-04-11] MEDS: CEFAZOLIN 2 GM/100 ML FROZ.PIGGY IV (04:09)
[2018-04-11] MEDS: LEVOTHYROXINE 112 MCG TABLET PO (05:44)
[2018-04-11 06:47] LABS: Hematocrit 30.7 % (41-53); Hemoglobin 10.1 g/dL (13.5-17.5)
--- NOTE | 2018-04-11 07:48 | PM.PNPO.1 ---
Subjective Date Patient Seen: 04/11/18 Time Patient Seen: 07:48 Interval history: Hospital day 2, postop day 1 following L1-2, L2-[address] Solano. He is scheduled as an outpatient. He does have Vigil catheter in place. He has not been out of bed since surgery. I did have nausea and vomiting between 10 and 12 p.m. last night. No leg symptoms noted. He is concerned that the hydrocodone is causing his nausea. He is not able to tolerate oxycodone. He has never had tramadol. He was to restart his warfarin 8 hr after his surgery which he received last night. Restart Lovenox 70 mg b.i.d. today. Patient is to remain on the Lovenox until his INR is greater than 2.5 and then stop. He is to go to [facility] days. Exam Vital Signs (past 8 hours): - 04/11/18 01:26 04/11/18 05:39 Temperature 97.5 F L 97.5 F L Pulse Rate 62 64 Respiratory Rate 15 16 Blood Pressure 112/63 111/70 Pulse Oximetry 99 98 Oxygen Delivery Method Nasal Cannula Oxygen Flow Rate 0 Narrative Exam Narrative: Alert, oriented in no acute distress lying in bed. Legs. No calf pain or swelling. Pulses symmetrical. Good sensation to touch the lower legs. Good strength on foot dorsiflexion plantar flexion. Objective Labs Result Diagrams: 04/11/18 06:17 Labs: Laboratory Results - last 24 hr 04/11/18 06:17 Hgb 10.1 L Hct 30.7 L Assessment & Plan Post-op Postoperative Procedures Operation Date: 04/10/18 12:15 Actual Procedures Side Surgeon p Laminectomy L1-2,L2-3 Not Applicable Daryl Solano MD Plan: Wrote for tramadol 50 mg for moderate pain and 100 mg for severe pain to use in place of [place]. His blood pressure was low this morning. Given bolus normal saline 500 mL. Will observe patient for getting out of bed with PT this morning. Plan to DC Vigil catheter once he is more active. We will re-evaluate patient later today to determine if she is ready to go home early on. He does live at home with his significant other and also has his sister planning to come and stay to help. Quality VTE Deep Vein Thrombosis/Pulmonary Embolism Present on Admission: No
--- NOTE | 2018-04-11 08:46 | CM.DANOTE ---
DCP: Case received, EMR reviewed and met with patient. Introduced self and role. DCP template completed with information currently available. Patient is an 82 year old male who admitted yesterday to the care of the surgical team here at the hospital. PCP: Dr. Hoyt. Payer: confirmed: Medicare. Patient came to hospital for surgical procedure. He has history of Lumbar Stenosis. He has lumbar fusion surgery yesterday. Met with patient, alert and oriented. Stated that he lives with his significant other, and sister is also staying with him. He stated that he uses a cane at home. He also stated that he has been driving. He resides in [place], and is a . Dr. Solano, surgeon, is recommending home health. Will need physical therapy, as well as nursing visits for INRs. Patient stated, he just finished with [facility] not long ago, and is requesting them again. Have face to face signed already. P: DCP to continue to follow. Plan is for home with home health. Will be faxing notes to [facility]. Anay Winchester RN/Origination Specialist
[2018-04-11] MEDS: LACTATED RINGERS 1,000 ML 125 ML IV ×2 (08:51→18:34)
[2018-04-11] MEDS: SODIUM CHLORIDE 0.9% 500 ML IV (08:52)
[2018-04-11] MEDS: ACETAMINOPHEN 325 MG TABLET 650 MG PO ×3 (08:52→21:01)
[2018-04-11] MEDS: PANTOPRAZOLE 40 MG TABLET PO ×2 (08:53→20:51)
[2018-04-11] MEDS: MULTIVITAMIN 1 TABLET 1 TAB PO (08:53)
[2018-04-11] MEDS: DOCUSATE 100 MG CAPSULE PO ×2 (08:53→20:50)
--- NOTE | 2018-04-11 10:07 | PT.IIE ---
Current Diagnoses Spinal stenosis, lumbar region with neurogenic claudication (04/10/18) Strain of muscle, fascia and tendon at neck level, subsequent encounter (04/10/18) Other specified postprocedural states (04/10/18) Surgery Performed Operation Date: 04/10/18 12:15 Actual Procedures p Laminectomy L1-2,L2-3(Not Applicable) - Daryl Solano MD Surgical History (Last Updated 04/02/18 @ 16:55 by Cyndie Barclay RN) H/O hernia repair (Acute) H/O maze procedure (Acute) H/O mitral valve replacement (Acute) H/O tricuspid valve repair (Acute) History of esophagogastroduodenoscopy (EGD) (Acute) History of laminectomy (Acute) Previous back surgery (Acute) S/P TURP (status post transurethral resection of prostate) (Acute) Medical History (Last Reviewed 04/11/18 @ 10:57 by Johnnie Traore) 3rd brn w/ loss-fngr/thmb (Acute) Anemia (Acute) Asthma (Acute) BPH (benign prostatic hyperplasia) (Acute) Back pain (Acute) Bifascicular block (Acute ~2013) Bruises easily (Acute) Cervical stenosis of spinal canal (Acute) Chronic back pain (Acute) Depression (Acute) Dyspnea (Acute) Facet hypertrophy of cervical region (Acute) Falls (Acute) GERD (gastroesophageal reflux disease) (Acute) History of anemia (Acute) History of cardioversion (Acute) History of migraine headaches (Acute) Hyperkalemia (Acute) Hyperlipidemia (Acute) Intractable back pain (Acute) Leg swelling (Acute) Leg weakness, bilateral (Acute) Lumbar stenosis with neurogenic claudication (Acute) Mitral valve prolapse (Acute) Neck pain (Acute) Numbness and tingling in both hands (Acute) Osteoarthritis (Acute) Pacemaker (Acute 05/06/14) Paroxysmal atrial flutter (Acute ~2013) Primary hypothyroidism (Acute) Prosthetic mitral valve regurgitation (Acute) SSS (sick sinus syndrome) (Acute) Strain of neck muscle (Acute) Stroke (Acute) Suspicious (Acute) Weakness of both arms (Acute) Weight loss (Acute) Physical Therapy Inpatient Evaluation/Re-Eval M1 PT/OT-IP Prior Functional Status Start: 04/10/18 16:19 Freq: NEEDED Status: Active Protocol: Document 04/11/18 10:07 AB (Rec: 04/11/18 12:38 AB [id number]) Medical Review Prior Functional Status Medical History Reviewed Yes Communication able to make needs known Mobility and Gait pt stated that he is modified independent with all mobilities and ambulation using 4WW indoors and FWW outdoors. Social History Household Members none Living Arrangements House Number of Floors (Floors) One Floor Number of Stairs To Enter/Railing? 2 steps with bilateral rails Home Environment High Toilet Walk in Shower Home Equipment Front Wheel Walker Four Wheel Walker Straight Cane Shower Seat with Backrest Hand Held Shower Grab Bars Near Toilet Grab Bars In Shower Employment Status Retired Additional Social History Comment significant other and sister plans to stay with pt and assist him M2 PT-IP Current Condition Start: 04/10/18 16:19 Freq: NEEDED Status: Active Protocol: Document 04/11/18 10:07 AB (Rec: 04/11/18 12:38 AB [id number]) Physical Therapy Current Condition Current Condition Evaluation Date 04/11/18 Treatment Diagnosis s/o L1-2, L2-3 laminectomy; difficulty in walking Onset Date 04/10/18 Precautions Lumbar Precautions Log Roll No Twisting Limit Bending Lifting Restriction of 10 lbs Gait Belt above Incisional Area M3 PT-IP Subjective Start: 04/10/18 16:19 Freq: NEEDED Status: Active Protocol: Document 04/11/18 10:07 AB (Rec: 04/11/18 12:38 AB [id number]) Subjective Physical Therapy Visit Type Type Initial Evaluation Visit Start Time 10:07 Visit Stop Time 10:45 Total Visit Minutes 38 Number of MEDICAL COLLECTOR Visits 0 Physical Therapy Visit Comments Patient Comments pt agreeable to do PT Therapy Pain Assessment Pain When Pain Assessed At Rest Pain Present Pain Present Pain Reported Location Lower Back Intensity 3 Scale Used Numeric (1 - 10) Description With Movement Pain Management Techniques Re-positioning Timing of Activity with Medications M4 PT-IP Mobility and Gait Start: 04/10/18 16:19 Freq: NEEDED Status: Active Protocol: Document 04/11/18 10:07 AB (Rec: 04/11/18 12:38 AB [id number]) PT-Bed Mobility Assessment Rolling Type of Rolling Log Rolling Level of Assist Standby Assistance Supine to Sit Supine to Sit Standby Assistance 1 Person Assistance Scooting Scooting to Edge of Bed Standby Assistance PT-Transfer Assessment Sit to and From Stand Sit to and from Stand Minimal Assistance 1 Person Assistance Use of Upper Extremities Comments Mobility Comments BP monitored: supine: 110/70 sitting on EOB: 105/62 after walking sitting on chair : 108/67 Gait Assessment Gait Gait Assistance Required: Minimum Assistance 1 Person Assist Distance (Feet) 35 Able to Maintain Weight Bearing Status Yes During Gait Assistive Devices Assistive Device Gait Belt Front Wheeled Walker Gait Deviations General Gait Pattern Decreased Stride Length Decreased Feet Clearance Factors Limiting Gait Function Factors Limiting Gait Function Decreased Activity Tolerance Decreased Strength Limited Range of Motion Pain Poor Balance Comments Gait Comments pt presents with unsteady gait PT-Balance Assessment Sitting Balance and Reactions Static Sitting Balance Ability Good Dynamic Sitting Balance Ability Good Standing Balance and Reactions Static Standing Balance Ability Fair Dynamic Standing Balance Ability Fair Device Used FWW M5 PT-IP Objective Assessments Start: 04/10/18 16:19 Freq: NEEDED Status: Active Protocol: Document 04/11/18 10:07 AB (Rec: 04/11/18 12:38 AB [id number]) Orientation Orientation/Cognition Level of Alertness Alert Orientation Name Age Birthday Year Place Situation Language Function Ability No Deficits Noted Safety Awareness Understands Safety Issues Gross Range of Motion Lower Extremity ROM Assessment Within Functional Limits Strength Comments Strength Comments RLE 4/5 LLE 4-/5 Coordination Assessment Gross Coordination Gross Coordination WNL Sensation Assessment Comments Sensation Comments stated that he has on/off numbness on BLE that is one of the reasons for the back surgery but currently stated no sensation problems Muscle Tone Muscle Tone WNL Yes M6 PT-IP Treatment Start: 04/10/18 16:19 Freq: NEEDED Status: Active Protocol: Document 04/11/18 10:07 AB (Rec: 04/11/18 12:38 AB [id number]) Physical Therapy Treatment Education Education Provided Precautions Weight Bearing Status Post-Op Packet Safety M7 PT-IP Assessment and Plan Start: 04/10/18 16:19 Freq: NEEDED Status: Active Protocol: Document 04/11/18 10:07 AB (Rec: 04/11/18 12:38 AB [id number]) PT Summary Assessment and Plan Potential Rehabilitation Potential Good Status of Condition at Evaluation Stable Summary Impairments Pain ROM Strength Balance Coordination Sensation Tone Cognition Bed Mobility Transfers Gait Activity Tolerance Assessment Summary pt requiring min A with mobility and unable to tolerate much activity this morning due to fatigue. pt plans to go home with significant other and sister to assist him. caregiver training will be conducted when appropriate and stair climbing training prior to d/c . Goals Bed Mobility Goal Independent Transfer Goal Independent Front Wheeled Walker Gait Goal Standby Assistance Front Wheel Walker Gait Distance 200 Other Goals up/down 2 steps with bilateral rails Days to Meet Goals 3 Frequency of Treatment Frequency Of Treatment Twice a Day Treatment Plan Physical Therapy Treatment Plan Bed Mobility Training Transfer Training Gait Training Therapeutic Exercise Balance Retraining Post Op Education Discharge Planning Hot or Cold Pack Neuromuscular Re-ed Coordination Retraining Manual Therapy Other Recommendations and Next Treatment ambulation, stair climbing Focus training, caregiver training Recommendations To Nursing Amount of Assist Needed 1 Person Assist Discharge Recommendations PT Discharge Recommendations Home with Assistance
[2018-04-11] MEDS: ONDANSETRON 4 MG/2 ML INJ IV (11:22)
[2018-04-11] MEDS: ENOXAPARIN 80 MG/0.8 ML SYRINGE 70 MG SUBCUT ×2 (11:27→20:50)
--- NOTE | 2018-04-11 12:03 | CM.DPC ---
DCP Cont: Went ahead and called Abena at [facility], for patient has been working with him in the past. She stated that the name was familiar. Let her know that clinical notes, orders, and face to face would be sent over after physical therapy notes are complete, for they have not worked with him yet. Hector Albertmorris came in to discuss patient. Will be here today, due to some issues with his blood pressure. Plans are for discharge tomorrow. P: DCP to continue to follow. As soon as therapy notes are receive, will fax to [facility]. Significant other and sister visiting. Anay Winchester RN/Lead Inspector
--- NOTE | 2018-04-11 13:11 | PM.CN ---
History of Present Illness Date Patient Seen: 04/11/18 Chief complaint: *OPB* lumbar [id number] Reason for consult: History of mechanical valve placement status post lumbar laminectomy Narrative: The patient is an 82-year-old male who is status post L 1 3 L3 lumbar laminectomy postop day 1. Who I was asked to assist with evaluation of multiple medical problems. The patient was scheduled for an outpatient procedure. He which was felt to be related to narcotics. Patient has a significant past medical history including a month mechanical heart valve due to mitral valve prolapse, chronically on anticoagulation, also with a pacemaker placement. The patient has been relatively well except for pain in his low back. He reports nausea to narcotics in the past. He is no longer nauseated. He has had no further emesis. He denies any hematemesis , melena or bright red blood per rectum. The patient is not short of breath. He has no cough. He denies any chest pain. He has a Vigil catheter in place. It he denies fever chills or dysuria prior to the procedure. Patient was able to eat his lunch today without difficulty. His pain appears to be well controlled. [facility]LY [facility] Medical History 3rd brn w/ loss-fngr/thmb (Acute) Anemia (Acute) Asthma (Acute) BPH (benign prostatic hyperplasia) (Acute) Back pain (Acute) Bifascicular block (Acute ~2013) Bruises easily (Acute) Cervical stenosis of spinal canal (Acute) Chronic back pain (Acute) Depression (Acute) Dyspnea (Acute) Facet hypertrophy of cervical region (Acute) Falls (Acute) GERD (gastroesophageal reflux disease) (Acute) History of anemia (Acute) History of cardioversion (Acute) History of migraine headaches (Acute) Hyperkalemia (Acute) Hyperlipidemia (Acute) Intractable back pain (Acute) Leg swelling (Acute) Leg weakness, bilateral (Acute) Lumbar stenosis with neurogenic claudication (Acute) Mitral valve prolapse (Acute) Neck pain (Acute) Numbness and tingling in both hands (Acute) Osteoarthritis (Acute) Pacemaker (Acute 05/06/14) Paroxysmal atrial flutter (Acute ~2013) Primary hypothyroidism (Acute) Prosthetic mitral valve regurgitation (Acute) SSS (sick sinus syndrome) (Acute) Strain of neck muscle (Acute) Stroke (Acute) Suspicious (Acute) Weakness of both arms (Acute) Weight loss (Acute) Surgical History H/O hernia repair (Acute) H/O maze procedure (Acute) H/O mitral valve replacement (Acute) H/O tricuspid valve repair (Acute) History of esophagogastroduodenoscopy (EGD) (Acute) History of laminectomy (Acute) Previous back surgery (Acute) S/P TURP (status post transurethral resection of prostate) (Acute) Social History household members: none Smoking Status: Never smoker alcohol intake: current Comment: The patient is a non smoker. Family history reveals no evidence of cancer. Meds Home Medications Medication Instructions Recorded Confirmed Type amoxicillin 2,000 mg PO SEEINSTR 11/01/17 04/02/18 History esomeprazole magnesium 40 mg PO BID 11/01/17 04/02/18 History fluticasone-salmeterol [Advair 1 puff INHALATION DAILY 11/01/17 04/02/18 History Diskus] levothyroxine 112 mcg PO DAILY 11/01/17 04/02/18 History metoprolol tartrate 12.5 mg PO DAILY 11/01/17 04/02/18 History multivitamin 1 tab PO DAILY 11/01/17 04/02/18 History warfarin 3 mg PO SEEINSTR 11/01/17 04/02/18 History warfarin 4 mg PO SEEINSTR 11/01/17 04/02/18 History acetaminophen 325 mg PO Q6H PRN 04/02/18 04/02/18 History ipratropium bromide 2 spray INTRANASAL BID 04/02/18 04/02/18 History Allergies Allergy/AdvReac Type Severity Reaction Status Date / Time morphine AdvReac Unknown Nausea Verified 04/10/18 10:38 oxycodone AdvReac Unknown Vomiting Verified 04/10/18 10:38 Review of Systems Review of Systems All systems reviewed & are unremarkable except as noted in HPI and below Exam Vital Signs (past 8 hours): - 04/11/18 05:39 04/11/18 07:35 04/11/18 08:14 Temperature 97.5 F L 98.1 F Pulse Rate 64 62 69 Respiratory Rate 16 16 Blood Pressure 111/70 88/53 L 89/60 L Pulse Oximetry 98 94 04/11/18 10:09 04/11/18 11:19 Temperature 97.7 F Pulse Rate 64 62 Respiratory Rate 16 Blood Pressure 100/63 112/64 Pulse Oximetry 96 Oxygen Delivery Method Room Air Oxygen Flow Rate 0 Narrative Exam Narrative: Pleasant gentleman resting comfortably in no obvious distress. HEENT: Normocephalic atraumatic, oropharynx is clear, tongue is midline, neck is supple, no JVD noted Lungs: Coarse at the bases otherwise clear to auscultation. Cardiac exam: Regular rate rhythm normal S1 and S2, 3/6 systolic ejection murmur with a positive click Abdomen: Soft nontender nondistended without appreciable hepatosplenomegaly Extremities: Right ankle with 1 to 2+ edema. Left ankle no edema. Neuro exam: Patient reports a right field cut from his prior stroke. Cranial nerves are intact. Strength is symmetric and equal. Sensation grossly intact reflexes are brisk and equal. Skin exam no lesion noted Psychiatric exam: Patient is awake alert and appropriate he has no obvious hallucinations, no delusions or tics. Objective Labs Result Diagrams: 04/11/18 06:17 Labs: Laboratory Results - last 24 hr 04/11/18 06:17 Hgb 10.1 L Hct 30.7 L Assessment & Plan (1) Status post lumbar laminectomy: Problem details: Patient is recuperating postoperatively very well. No further nausea at this time. Current visit: Yes Status: Acute (2) History of heart valve replacement with mechanical valve: Problem details: Patient with known mechanical heart valve. I reviewed the records from Cardiology. He will continue on Lovenox until his INR is greater than 2.5. At that point he will continue on Coumadin. Coumadin has been restarted last evening. Current visit: Yes Status: Acute (3) History of stroke: Problem details: Patient has a history of stroke. He has a right-sided visual field cut deficit he currently has no other deficits. Current visit: Yes Status: Acute (4) Hypothyroidism: Problem details: Will continue usual thyroid medication Current visit: Yes Status: Acute (5) GERD (gastroesophageal reflux disease): Current visit: Yes Status: Acute (6) History of asthma: Current visit: Yes Status: Acute (7) Osteoarthritis: Current visit: Yes Status: Acute (8) Hypotension: Current visit: Yes Status: Acute Plan: Assessment/Plan Narrative: Agree with IV hydration. Agree with discontinuation of narcotics. Would continue anti nausea medications will recheck labs in the morning and continue to follow with you. Thank you very much for this consultation
--- NOTE | 2018-04-11 13:34 | PM.PNPO.1 ---
Subjective Date Patient Seen: 04/11/18 Time Patient Seen: 13:34 Interval history: His blood pressure was low this morning but doing better now that he is back on fluids. Was nauseated and had thrown up yesterday but no more nausea. Doing fine with pain medication just taking Tylenol. Exam Vital Signs (past 8 hours): - 04/11/18 05:39 04/11/18 07:35 04/11/18 08:14 Temperature 97.5 F L 98.1 F Pulse Rate 64 62 69 Respiratory Rate 16 16 Blood Pressure 111/70 88/53 L 89/60 L Pulse Oximetry 98 94 04/11/18 10:09 04/11/18 11:19 Temperature 97.7 F Pulse Rate 64 62 Respiratory Rate 16 Blood Pressure 100/63 112/64 Pulse Oximetry 96 Oxygen Delivery Method Room Air Oxygen Flow Rate 0 Back/Spine/Pelvis Other: Dressing CDI. 5/5 motor both lower extremities. Objective Labs Result Diagrams: 04/11/18 06:17 Labs: Laboratory Results - last 24 hr 04/11/18 06:17 Hgb 10.1 L Hct 30.7 L Assessment & Plan Post-op Postoperative Procedures Operation Date: 04/10/18 12:15 Actual Procedures Side Surgeon p Laminectomy L1-2,L2-3 Not Applicable Daryl Solano MD he is doing much better now. However, still low urine output and I will order another bolus as well as continue him on IV fluids. Anticipate probable discharge home tomorrow. Quality VTE Deep Vein Thrombosis/Pulmonary Embolism Present on Admission: No
--- NOTE | 2018-04-11 13:55 | OT.IP.EVAL ---
Current Diagnoses Hypothyroidism, unspecified (04/10/18) Hypotension, unspecified (04/10/18) Gastro-esophageal reflux disease without esophagitis (04/10/18) Unspecified osteoarthritis, unspecified site (04/10/18) Spinal stenosis, lumbar region with neurogenic claudication (04/10/18) Strain of muscle, fascia and tendon at neck level, subsequent encounter (04/10/18) Personal history of transient ischemic attack (TIA), and cerebral infarction without residual deficits (04/10/18) Personal history of other diseases of the respiratory system (04/10/18) Presence of prosthetic heart valve (04/10/18) Other specified postprocedural states (04/10/18) Surgery Performed Operation Date: 04/10/18 12:15 Actual Procedures p Laminectomy L1-2,L2-3(Not Applicable) - Daryl Solano MD Past Medical History (Last Reviewed 04/11/18 @ 13:14 by Pura Sawant MD) 3rd brn w/ loss-fngr/thmb (Acute) Anemia (Acute) Asthma (Acute) BPH (benign prostatic hyperplasia) (Acute) Back pain (Acute) Bifascicular block (Acute ~2014) Bruises easily (Acute) Cervical stenosis of spinal canal (Acute) Chronic back pain (Acute) Depression (Acute) Dyspnea (Acute) Facet hypertrophy of cervical region (Acute) Falls (Acute) GERD (gastroesophageal reflux disease) (Acute) History of anemia (Acute) History of cardioversion (Acute) History of migraine headaches (Acute) Hyperkalemia (Acute) Hyperlipidemia (Acute) Intractable back pain (Acute) Leg swelling (Acute) Leg weakness, bilateral (Acute) Lumbar stenosis with neurogenic claudication (Acute) Mitral valve prolapse (Acute) Neck pain (Acute) Numbness and tingling in both hands (Acute) Osteoarthritis (Acute) Pacemaker (Acute 05/06/14) Paroxysmal atrial flutter (Acute ~2013) Primary hypothyroidism (Acute) Prosthetic mitral valve regurgitation (Acute) SSS (sick sinus syndrome) (Acute) Strain of neck muscle (Acute) Stroke (Acute) Suspicious (Acute) Weakness of both arms (Acute) Weight loss (Acute) Surgical History (Last Reviewed 04/11/18 @ 13:14 by Pura Sawant MD) H/O hernia repair (Acute) H/O maze procedure (Acute) H/O mitral valve replacement (Acute) H/O tricuspid valve repair (Acute) History of esophagogastroduodenoscopy (EGD) (Acute) History of laminectomy (Acute) Previous back surgery (Acute) S/P TURP (status post transurethral resection of prostate) (Acute) Occupational Therapy Inpatient Evaluation/Re-Eval M1 PT/OT-IP Prior Functional Status Start: 04/10/18 16:19 Freq: NEEDED Status: Active Protocol: Document 04/11/18 13:55 PJM (Rec: 04/11/18 16:44 PJM [id number]) Medical Review Prior Functional Status Medical History Reviewed Yes Diet/Fluid Consistency Regular Communication WNL Mobility and Gait pt stated that he is modified independent with all mobilities and ambulation using 4WW indoors and FWW outdoors. Activities of Daily Living and IADL's Pt states he was indep with all self care, IADLS, drives. Social History Household Members none Living Arrangements House Number of Floors (Floors) One Floor Number of Stairs To Enter/Railing? 2 steps with bilateral rails Home Environment High Toilet Walk in Shower Home Equipment Front Wheel Walker Four Wheel Walker Straight Cane Raised Toilet Seat w/Armrests Shower Seat with Backrest Hand Held Shower Long Handled Sponge Long Handled Shoe Horn Orchestra Director Sock Aid Grab Bars Near Toilet Grab Bars In Shower Employment Status Retired Additional Social History Comment significant other and sister plans to stay with pt and assist him; sister staying until 04/22/18; so normally lives 1.5 hrs away M2 OT-IP Current Condition Start: 04/11/18 16:26 Freq: Status: Active Protocol: Document 04/11/18 13:55 PJM (Rec: 04/11/18 16:44 PJM [id number]) Occupational Therapy Current Condition Current Condition Evaluation Date 04/11/18 Treatment Diagnosis decreased self care, functional mobility s/p L1-2, L2-3 lami Diagnosis Onset Date 04/10/18 Post Operative Precautions Lumbar Precautions Log Roll No Twisting Limit Bending Lifting Restriction of 10 lbs Gait Belt above Incisional Area M3 OT- IP Subjective and Pain Start: 04/11/18 16:26 Freq: Status: Active Protocol: Document 04/11/18 13:55 PJM (Rec: 04/11/18 16:44 PJM [id number]) OT- Subjective Occupational Therapy Visit Type Type Initial Evaluation Visit Start Time 13:29 Visit Stop Time 13:55 Total Visit Minutes 26 Notes Per RN, pt was orthostatic this AM with P.T. This session vitals: Supine BP 96/63 HR 76 Sitting BP 114/62 HR 84 After tx sitting BP 116/65 HR 81 No c/o dizziness this session. Occupational Therapy Visit Comments Patient/Caregiver Goals to go home and have less back pain during everyday tasks OT Pain Assessment Pain When Pain Assessed After Treatment Pain Present Pain Present Pain Reported Location Lower Back Intensity 2 Scale Used Numeric (1 - 10) Description Aching Acute M4 OT- IP ADL's Start: 04/11/18 16:26 Freq: Status: Active Protocol: Document 04/11/18 13:55 PJ (Rec: 04/11/18 16:44 [facility] [id number]) OT [id number] General Evaluation Self-Feeding Ability Independent OT ADL-Grooming General Evaluation Grooming Ability Standby Assistance Comments OT Grooming Comments seated in chair after set up OT ADL-Oral Care General Eval Oral Care Ability Standby Assistance Comments Oral Care Comments seated in chair OT ADL-Dressing General Eval Lower Body Dressing Ability Standby Assistance Areas Needing Assistance Socks Assistive Devices Dressing Assistive Devices Long Handled Shoe [employer] Orchestra Director Sock Aid Comments OT Dressing Comments Pt has sock aid at home and uses it for R sock due to RLE stiffness. OT ADL-Toileting General Evaluation Toileting Ability Total Assistance Areas Needing Assistance Empty Catheter or Colostomy Comments OT Toileting Comments roland still in place OT ADL-Bathing Comments OT Bathing Comments to be assessed; pt has all necessary bathroom safety equipt at home M5 OT- IP IADL's Start: 04/11/18 16:26 Freq: Status: Active Protocol: Document 04/11/18 13:55 PJM (Rec: 04/11/18 16:44 [facility] [id number]) OT-Instrumental Activities of Daily Living Deficits IADL Deficits Identified Deficits Home Safety Awareness Awareness of Need for Assistance at Home Good Awareness Ability to Problem Solve Emergency Able to Problem Solve Situations Medication Management Medication Management No Deficits Identified Money Management Money Management No Deficits Identified Meal Preparation Meal Preparation Caregiver Provides Assist Meal Preparation Comments S.O. and sister to assist PRN until pt able Desk Manager Desk Manager Caregiver Provides Assist Desk Manager Comments S.O. and sister to assist PRN until pt able Driving Driving Caregiver Provides Supervision Driving Comments S.O. and sister to assist PRN until pt able M6 OT- IP Functional Cognition Start: 04/11/18 16:26 Freq: Status: Active Protocol: Document 04/11/18 13:55 PJM (Rec: 04/11/18 16:44 PJ [id number]) Cognitive Factors Limiting Selfcare Function Cognitive Ability Level of Alertness Alert Patient Orientation Name Age Birthday Month Date Year Day of Week Place Situation Attention Span Ability Capable of Focused Attention Capable of Sustained Attention Ability to Follow Commands Able to Follow One Step Commands Able to Follow Multi-Step Commands Memory Description No Deficits Noted Safety Awareness No Deficits Noted Cognitive Comments Cognitive Assessment Comments Functional cognition appears WFL OT- Vision and Hearing OT- Hearing Assessment OT- Hearing Assessment WFL Right Ear Impaired Left Ear Impaired Use of Hearing Aids OT- Vision Assessment Visual Acuity WFL Glasses All The Time Vision Assessment Comments pt denies any recent vision changes M7 OT- IP Mobility and Balance Start: 04/11/18 16:26 Freq: Status: Active Protocol: Document 04/11/18 13:55 PJM (Rec: 04/11/18 16:44 [facility] [id number]) OT- Bed Mobility Assessment Rolling Type of Rolling Log Rolling Roll to Left Level of Assistance Standby Assistance 1 Person Assistance Supine to Sit Supine to Sit Assist Standby Assistance 1 Person Assistance Scooting Scooting to Edge of Bed Independent OT-Transfer Assessment Sit to and From Stand Sit to and from Stand Contact Guard Assistance Transfers Transfer Ability Standby Assistance Technique Transfer Destination Chair Transfer Technique Stand Step Pivot Devices Transfer Assistive Devices Gait Belt Front Wheeled Walker OT- Gait Assessment Comments Gait Ability Comments did not occur this session; see P.T. notes OT- Balance Assessment Sitting Balance and Reactions Static Sitting Balance Ability Good Dynamic Sitting Balance Ability Good Standing Balance and Reactions Static Standing Balance Ability Good M8 OT- IP Objective Assessments Start: 04/11/18 16:26 Freq: Status: Active Protocol: Document 04/11/18 13:55 PJM (Rec: 04/11/18 16:44 [facility] [id number]) OT Gross Range of Motion Upper Extremity Range of Motion Assessment Within Functional Limits ROM Impairments Except R shoulder scaption limited to about 80 degrees and LUE scaption to about 90 degrees by stiffness. OT Strength Upper Extremity Strength Assessment Within Functional Limits Comments Strength Comments Pt reports mild BUE/hand weakness that has improved since C4-7 lami's 10/2017. Strength is WFL for ADL's OT- Coordination Assessment Comments Coordination Comments coordination limited by R>L hand numbness OT-Muscle Tone Assessment Muscle Tone WNL Yes OT Sensation Assessment Location Left All Fingers Light Touch Impaired Right All Fingers Light Touch Impaired Comments Summary Comments Pt reports numbness in B hands ; R worse than L Edema Edema Absent M9 OT- IP Assessment and Plan Start: 04/11/18 16:26 Freq: Status: Active Protocol: Document 04/11/18 13:55 PJM (Rec: 04/11/18 16:44 PJM [id number]) OT Summary Assessment and Plan Potential Rehabilitation Potential Good Analytic Complexity at Evaluation Low Summary OT Impairments Pain Strength Balance Functional Mobility Grooming Dressing Toileting Bathing Toilet Transfers Shower Transfers Assessment Summary Low complexity OT assessment completed with activity tolerance limited by orthostasis this AM with P.T., but BP stable this PM. Pt still has roland in place. Pt currently has performance deficits in activity tolerance , functional mobility/ transfers, lower body dressing Plan 1 additional OT session for ADL training with emphasis on body mechanics and lumbar spine precautions. Pt plans to d/c home with assist for S.O. who normally lives 1.5 hrs away and sister staying until 04/22/18. Goals Grooming Goal Independent Dressing Goal Independent Long Handled Shoe [employer] Orchestra Director Sock Aid Toileting Goal Independent Bathing Goal Standby Assistance Toilet Transfer Goal Independent Shower Transfer Goal Standby Assistance Patient/Caregiver Education Goal Demonstrate Post-Op Precautions Demonstrate Energy Conservation and Pacing Caregiver Independent Assisting Patient Days to Meet Goals 2 Frequency of Treatment Frequency Of Treatment Once a Day Treatment Plan OT Treatment Plan ADL Training Functional Mobility Patient/Family Education Discharge Planning Discharge Recommendations OT Discharge Recommendations Home with Assistance Home Equipment Needs pt has all necessary equipt
[2018-04-11] MEDS: SODIUM CHLORIDE 0.45% 1,000 ML 1000 ML IV (14:03)
--- NOTE | 2018-04-11 15:31 | PT.IPTN ---
Current Diagnoses Hypothyroidism, unspecified (04/10/18) Hypotension, unspecified (04/10/18) Gastro-esophageal reflux disease without esophagitis (04/10/18) Unspecified osteoarthritis, unspecified site (04/10/18) Spinal stenosis, lumbar region with neurogenic claudication (04/10/18) Strain of muscle, fascia and tendon at neck level, subsequent encounter (04/10/18) Personal history of transient ischemic attack (TIA), and cerebral infarction without residual deficits (04/10/18) Personal history of other diseases of the respiratory system (04/10/18) Presence of prosthetic heart valve (04/10/18) Other specified postprocedural states (04/10/18) Surgery Performed Operation Date: 04/10/18 12:15 Actual Procedures p Laminectomy L1-2,L2-3(Not Applicable) - Daryl Solano MD Physical Therapy Treatment Note M2 PT-IP Current Condition Start: 04/10/18 16:19 Freq: NEEDED Status: Active Protocol: Document 04/11/18 10:07 AB (Rec: 04/11/18 12:38 AB [id number]) Physical Therapy Current Condition Current Condition Evaluation Date 04/11/18 Treatment Diagnosis s/o L1-2, L2-3 laminectomy; difficulty in walking Onset Date 04/10/18 Precautions Lumbar Precautions Log Roll No Twisting Limit Bending Lifting Restriction of 10 lbs Gait Belt above Incisional Area M3 PT-IP Subjective Start: 04/10/18 16:19 Freq: NEEDED Status: Active Protocol: Document 04/11/18 15:14 SA (Rec: 04/11/18 15:31 SA [email or web address]) Subjective Physical Therapy Visit Type Type Treatment Note Visit Start Time 14:22 Visit Stop Time 14:46 Total Visit Minutes 24 Number of WIC SITE COORDINATOR Visits 1 Physical Therapy Visit Comments Patient Comments Pt up in chair with family present, agreeable to PT. Patient Questionnaires Patient Questionnaires BP in chair at start of session 103/62, BP in standing 112/65 and BP at end of session seated 118/70. Therapy Pain Assessment Pain When Pain Assessed During Mobility Pain Present Pain Present Pain Reported Location Lower Back Intensity 3 Scale Used Numeric (1 - 10) Description With Movement Pain Management Techniques Re-positioning Timing of Activity with Medications M4 PT-IP Mobility and Gait Start: 04/10/18 16:19 Freq: NEEDED Status: Active Protocol: Document 04/11/18 15:14 SA (Rec: 04/11/18 15:31 SA [email or web address]) PT-Bed Mobility Assessment Rolling Type of Rolling Log Rolling Level of Assist Standby Assistance Supine to Sit Supine to Sit Standby Assistance 1 Person Assistance Sit to Supine Sit to Supine Standby Assistance Scooting Scooting to Edge of Bed Standby Assistance PT-Transfer Assessment Sit to and From Stand Sit to and from Stand Minimal Assistance 1 Person Assistance Equipment Transfer Assistive Device Front Wheeled Walker Orthotic/Prosthetic Devices or Brace: No Transfers Transfer Destination Chair Transfer Technique Stand Step Pivot Transfer Ability Level of Assist Contact Guard Assistance Comments Mobility Comments Pt with normalized BPs this afternoon and no c/o dizziness . Verbal and visual review of spinal precautions and log roll techniqe for safety. Gait Assessment Gait Gait Assistance Required: Contact Guard Assist 1 Person Assist Distance (Feet) 75 Able to Maintain Weight Bearing Status Yes During Gait Assistive Devices Assistive Device Gait Belt Front Wheeled Walker Gait Deviations General Gait Pattern Decreased Stride Length Decreased Feet Clearance Factors Limiting Gait Function Factors Limiting Gait Function Decreased Activity Tolerance Decreased Strength Limited Range of Motion Pain Poor Balance Comments Gait Comments Pt somewhat unsteady with gait and cues for increased step length and upright posture. No LOB but slower gait speed in general. PT-Balance Assessment Sitting Balance and Reactions Static Sitting Balance Ability Good Dynamic Sitting Balance Ability Good Comments Other Balance Tests/Deviations/Treatment Standing postural correction : at FWW with cues. M5 PT-IP Objective Assessments Start: 04/10/18 16:19 Freq: NEEDED Status: Active Protocol: Document 04/11/18 10:07 AB (Rec: 04/11/18 12:38 AB [id number]) Orientation Orientation/Cognition Level of Alertness Alert Orientation Name Age Birthday Year Place Situation Language Function Ability No Deficits Noted Safety Awareness Understands Safety Issues Gross Range of Motion Lower Extremity ROM Assessment Within Functional Limits Strength Comments Strength Comments RLE 4/5 LLE 4-/5 Coordination Assessment Gross Coordination Gross Coordination WNL Sensation Assessment Comments Sensation Comments stated that he has on/off numbness on BLE that is one of the reasons for the back surgery but currently stated no sensation problems Muscle Tone Muscle Tone WNL Yes M6 PT-IP Treatment Start: 04/10/18 16:19 Freq: NEEDED Status: Active Protocol: Document 04/11/18 15:14 SA (Rec: 04/11/18 15:31 SA [email or web address]) Physical Therapy Treatment Exercises Exercises Ankle Pumps Education Education Provided Precautions Weight Bearing Status Post-Op Packet Safety M7 PT-IP Assessment and Plan Start: 04/10/18 16:19 Freq: NEEDED Status: Active Protocol: Document 04/11/18 15:14 (Rec: 04/11/18 15:31 [email or web address]) PT Summary Assessment and Plan Potential Rehabilitation Potential Good Status of Condition at Evaluation Stable Summary Assessment Summary Pt with decreased activity tolerance but improving functional mobility. Fatigued by end of walk and unable to attempt stairs. Frequency of Treatment Frequency Of Treatment Twice a Day Recommendations To Nursing Amount of Assist Needed 1 Person Assist Discharge Recommendations PT Discharge Recommendations Home with Assistance Equipment Needed for Home Before Pt has FWW Discharge
[2018-04-11] MEDS: WARFARIN 3 MG TABLET PO (16:59)
[2018-04-11] MEDS: GABAPENTIN 300 MG CAPSULE PO (20:50)
[2018-04-11] MEDS: SENNOSIDES 8.6 MG TABLET 17.2 MG PO (20:51)
--- NOTE | 2018-04-12 01:01 | PC.NURSE ---
0030 Checked pt. to do assessment & VS, but he's sound asleep. Will monitor & assess when he wakes up.
[2018-04-12] MEDS: LACTATED RINGERS 1,000 ML 125 ML IV (03:12)
[2018-04-12] MEDS: ACETAMINOPHEN 325 MG TABLET 650 MG PO ×2 (03:50→09:50)
[2018-04-12 05:15] VITALS: BP 127/75; PULSE 67; RESP 16; TEMP 36.6; O2SAT 95
[2018-04-12] MEDS: LEVOTHYROXINE 112 MCG TABLET PO (05:34)
[2018-04-12 06:12] LABS: Add Manual Diff / Slide Review NO; Basophils Absolute Auto 0 /uL (0-100); Basophils Percent Auto 0.6 % (0-2); Eosinophils Absolute Auto 100 /uL (0-450); Eosinophils Percent Auto 1.5 % (2-4); Hematocrit 30.4 % (41-53); Hemoglobin 9.9 g/dL (13.5-17.5); Lymphocytes Absolute Auto 800 /uL (1100-4500); Lymphocytes Percent Auto 10.6 % (25-40); Mean Corpuscular HGB Conc 32.6 % (30-36); Mean Corpuscular Volume 85.7 fL (80-100); Monocytes Absolute Auto 700 /uL (0-900); Monocytes Percent Auto 9.4 % (3-14); Neutrophils Absolute Auto 6100 /uL (1500-7000); Neutrophils Percent Auto 77.9 % (50-75); Platelet Count 169 X10^3/uL (150-400); Red Blood Cell Count 3.55 X10^6/uL (4.5-5.9); Red Cell Distribution Width 15.5 % (11.6-14.8); White Blood Cell Count 7.9 X10^3/uL (4.5-11.0)
[2018-04-12 06:13] LABS: INR 1.2 (0.9-1.3); Prothrombin Time 13.5 SECONDS (10.1-12.7)
[2018-04-12 06:19] LABS: BUN Creatinine Ratio 18.8 (6-22); Blood Urea Nitrogen 15 mg/dL (9-20); Calcium 8.5 mg/dL (8.4-10.2); Carbon Dioxide 26 mmol/L (22-32); Chloride 101 mmol/L (98-107); Estimated Glomerular Filt Rate > 60.0 mL/min (>60); Glucose 90 mg/dL (80-110); HEMOLYSIS < 15 (0-50); Potassium 4.1 mmol/L (3.4-5.1); Sodium 134 mmol/L (137-145)
[2018-04-12 08:00] VITALS: BP 124/77; PULSE 86; RESP 16; TEMP 36.6; O2SAT 94
--- NOTE | 2018-04-12 08:02 | PM.PNPO.1 ---
Subjective Date Patient Seen: 04/12/18 Time Patient Seen: 08:02 Interval history: He is doing better today. Very happy, no more leg symptoms. However, the back pain has been increasing. Exam Vital Signs (past 8 hours): - 04/12/18 05:15 Temperature 97.9 F Pulse Rate 67 Respiratory Rate 16 Blood Pressure 127/75 Pulse Oximetry 95 Oxygen Delivery Method Room Air Oxygen Flow Rate 0 Const Orientation: alert and oriented x3 Back/Spine/Pelvis Other: CDI. 5/5 motor both lower extremities. Objective Labs Result Diagrams: 04/12/18 05:55 04/12/18 05:55 Labs: Laboratory Results - last 24 hr 04/12/18 04/12/18 04/12/18 05:55 05:55 05:55 WBC 7.9 RBC 3.55 L Hgb 9.9 L Hct 30.4 L MCV 85.7 MCH 28.0 MCHC 32.6 RDW 15.5 H Plt Count 169 Neut % (Auto) 77.9 H Lymph % (Auto) 10.6 L [place] % (Auto) 9.4 Eos % (Auto) 1.5 L Baso % (Auto) 0.6 Neut # (Auto) 6100 Lymph # (Auto) 800 L [place] # (Auto) 700 Eos # (Auto) 100 Baso # (Auto) 0 PT 13.5 H INR 1.2 Sodium 134 L Potassium 4.1 Chloride 101 Carbon Dioxide 26 BUN 15 Creatinine 0.80 Estimated GFR > 60.0 BUN/Creatinine Ratio 18.8 Glucose 90 Calcium 8.5 Assessment & Plan Post-op Postoperative Procedures Operation Date: 04/10/18 12:15 Actual Procedures Side Surgeon p Laminectomy L1-2,L2-3 Not Applicable Daryl Solano MD His blood pressure and urine output have returned back to normal. Continue to mobilize today with therapy. Try tramadol today for pain relief. If he is doing well, discharge home today, if not tomorrow. His INR is 1.2 and will continue to go up with the Coumadin. He has enough Lovenox to bridge for another 2 days once he goes home and that should be fine. Quality VTE Deep Vein Thrombosis/Pulmonary Embolism Present on Admission: No
[2018-04-12] MEDS: ENOXAPARIN 80 MG/0.8 ML SYRINGE 70 MG SUBCUT (08:30)
[2018-04-12] MEDS: DOCUSATE 100 MG CAPSULE PO (08:31)
[2018-04-12] MEDS: MULTIVITAMIN 1 TABLET 1 TAB PO (08:31)
[2018-04-12] MEDS: PANTOPRAZOLE 40 MG TABLET PO (08:31)
[2018-04-12] MEDS: METOPROLOL IR 25 MG TABLET 12.5 MG PO (08:32)
[2018-04-12] MEDS: FLUTICASONE/SALMETEROL 100/50 14 PUFF DISKUS INH (08:32)
[2018-04-12] MEDS: IPRATROPIUM BROMIDE 0.03% NASAL (08:32)
[2018-04-12] MEDS: TRAMADOL 50 MG TABLET PO ×2 (08:58→16:37)
--- NOTE | 2018-04-12 10:45 | PT.IPTN ---
Current Diagnoses Hypothyroidism, unspecified (04/10/18) Hypotension, unspecified (04/10/18) Gastro-esophageal reflux disease without esophagitis (04/10/18) Unspecified osteoarthritis, unspecified site (04/10/18) Spinal stenosis, lumbar region with neurogenic claudication (04/10/18) Strain of muscle, fascia and tendon at neck level, subsequent encounter (04/10/18) Personal history of transient ischemic attack (TIA), and cerebral infarction without residual deficits (04/10/18) Personal history of other diseases of the respiratory system (04/10/18) Presence of prosthetic heart valve (04/10/18) Other specified postprocedural states (04/10/18) Surgery Performed Operation Date: 04/10/18 12:15 Actual Procedures p Laminectomy L1-2,L2-3(Not Applicable) - Daryl Solano MD Physical Therapy Treatment Note M2 PT-IP Current Condition Start: 04/10/18 16:19 Freq: NEEDED Status: Active Protocol: Document 04/11/18 10:07 AB (Rec: 04/11/18 12:38 AB [id number]) Physical Therapy Current Condition Current Condition Evaluation Date 04/11/18 Treatment Diagnosis s/o L1-2, L2-3 laminectomy; difficulty in walking Onset Date 04/10/18 Precautions Lumbar Precautions Log Roll No Twisting Limit Bending Lifting Restriction of 10 lbs Gait Belt above Incisional Area M3 PT-IP Subjective Start: 04/10/18 16:19 Freq: NEEDED Status: Active Protocol: Document 04/12/18 10:18 SA (Rec: 04/12/18 10:44 SA [email or web address]) Subjective Physical Therapy Visit Type Type Treatment Note Visit Start Time 09:46 Visit Stop Time 10:11 Total Visit Minutes 25 Number of SNUFF GRINDER Visits 2 Physical Therapy Visit Comments Patient Comments Pt supine in bed but agreeable to PT, denies pain at rest. Describes sharp pain with transitions (sit<>stand) at 6/ 10 but is fleeting. Patient Questionnaires Patient Questionnaires BP at start of session 119/79. Therapy Pain Assessment Pain When Pain Assessed During Mobility Pain Present Pain Present Pain Reported Location Lower Back Intensity 6 Scale Used Numeric (1 - 10) Description With Movement Pain Management Techniques Re-positioning Timing of Activity with Medications M4 PT-IP Mobility and Gait Start: 04/10/18 16:19 Freq: NEEDED Status: Active Protocol: Document 04/12/18 10:18 SA (Rec: 04/12/18 10:44 SA [email or web address]) PT-Bed Mobility Assessment Rolling Type of Rolling Log Rolling Roll to Left Level of Assist Standby Assistance Supine to Sit Supine to Sit Minimal Assistance 1 Person Assistance Sit to Supine Sit to Supine Minimal Assistance Scooting Scooting to Edge of Bed Standby Assistance PT-Transfer Assessment Sit to and From Stand Sit to and from Stand Contact Guard Assistance 1 Person Assistance Equipment Transfer Assistive Device Front Wheeled Walker Orthotic/Prosthetic Devices or Brace: No Transfers Transfer Destination Chair Transfer Technique Stand Step Pivot Transfer Ability Level of Assist Contact Guard Assistance Comments Mobility Comments Pt with slow, gaurded movements. Increased assist with supine<>sit and log roll technique today d/t pt anticipation of pain with movement. Gait Assessment Gait Gait Assistance Required: Contact Guard Assist 1 Person Assist Distance (Feet) 150 Able to Maintain Weight Bearing Status Yes During Gait Assistive Devices Assistive Device Gait Belt Front Wheeled Walker Gait Deviations General Gait Pattern Decreased Stride Length Decreased Feet Clearance Factors Limiting Gait Function Factors Limiting Gait Function Decreased Activity Tolerance Decreased Strength Limited Range of Motion Pain Poor Balance Comments Gait Comments Improved gait quality and tolerance for longer distance with ability to improve RLE step length with verbal cues. Stair Climbing Assessment Evaluation Level of Assist On Stairs Contact Guard Assistance Devices Stair Climbing Assistive Devices Left Railing Right Railing Technique/Endurance Stair Climbing Direction Ascend and Descend Stair Climbing Technique Step to Step Number of Steps Climbed 2 Query Text: Stair Climbing Set # Repetitions (reps) 1 Comments Stair Climbing Comments Pt reports increased back pain with stair climb but able to do with CGA, step to gait and Min cues for safety. PT-Balance Assessment Sitting Balance and Reactions Static Sitting Balance Ability Good Dynamic Sitting Balance Ability Good Standing Balance and Reactions Static Standing Balance Ability Fair Dynamic Standing Balance Ability Fair Device Used FWW M5 PT-IP Objective Assessments Start: 04/10/18 16:19 Freq: NEEDED Status: Active Protocol: Document 04/11/18 10:07 AB (Rec: 04/11/18 12:38 AB [id number]) Orientation Orientation/Cognition Level of Alertness Alert Orientation Name Age Birthday Year Place Situation Language Function Ability No Deficits Noted Safety Awareness Understands Safety Issues Gross Range of Motion Lower Extremity ROM Assessment Within Functional Limits Strength Comments Strength Comments RLE 4/5 LLE 4-/5 Coordination Assessment Gross Coordination Gross Coordination WNL Sensation Assessment Comments Sensation Comments stated that he has on/off numbness on BLE that is one of the reasons for the back surgery but currently stated no sensation problems Muscle Tone Muscle Tone WNL Yes M6 PT-IP Treatment Start: 04/10/18 16:19 Freq: NEEDED Status: Active Protocol: Document 04/12/18 10:18 SA (Rec: 04/12/18 10:44 SA [email or web address]) Physical Therapy Treatment Exercises Exercises Ankle Pumps Gluteal Sets Education Education Provided Precautions Weight Bearing Status Post-Op Packet Safety M7 PT-IP Assessment and Plan Start: 04/10/18 16:19 Freq: NEEDED Status: Active Protocol: Document 04/12/18 10:18 SA (Rec: 04/12/18 10:44 SA [email or web address]) PT Summary Assessment and Plan Potential Rehabilitation Potential Good Status of Condition at Evaluation Stable Summary Assessment Summary Pt reports that he has increased pain today as his nerve block wore off but demonstrates improved gait and ability to climb stairs as well as improving activity tolerance. Frequency of Treatment Frequency Of Treatment Twice a Day Recommendations To Nursing Amount of Assist Needed 1 Person Assist Discharge Recommendations PT Discharge Recommendations Home with Assistance Equipment Needed for Home Before Pt has FWW Discharge
--- NOTE | 2018-04-12 12:35 | P.PN_ITS ---
Subjective Date Patient Seen: 04/12/18 Interval history: Patient reports back pain with movement. He denies chest pain , or shortness of breath Overall he feels much better today Exam Vital Signs (past 8 hours): - 04/12/18 05:15 04/12/18 08:00 Temperature 97.9 F 97.8 F Pulse Rate 67 86 Respiratory Rate 16 16 Blood Pressure 127/75 124/77 Pulse Oximetry 95 94 Oxygen Delivery Method Room Air Oxygen Flow Rate 0 Narrative Exam Narrative: Pleasant male resting comfortably in No acute distress Lungs: clear to auscultation CV: irregular, nl Sl S2 3/6 JONH, + click Abd: soft/ non tender/ non distended Ext: trace edema Objective Labs Result Diagrams: 04/12/18 05:55 04/12/18 05:55 Labs: Laboratory Results - last 24 hr 04/12/18 04/12/18 04/12/18 05:55 05:55 05:55 WBC 7.9 RBC 3.55 L Hgb 9.9 L Hct 30.4 L MCV 85.7 MCH 28.0 MCHC 32.6 RDW 15.5 H Plt Count 169 Neut % (Auto) 77.9 H Lymph % (Auto) 10.6 L [place] % (Auto) 9.4 Eos % (Auto) 1.5 L Baso % (Auto) 0.6 Neut # (Auto) 6100 Lymph # (Auto) 800 L [place] # (Auto) 700 Eos # (Auto) 100 Baso # (Auto) 0 PT 13.5 H INR 1.2 Sodium 134 L Potassium 4.1 Chloride 101 Carbon Dioxide 26 BUN 15 Creatinine 0.80 Estimated GFR > 60.0 BUN/Creatinine Ratio 18.8 Glucose 90 Calcium 8.5 Assessment & Plan (1) Hypotension: Problem details: Now resolved, IVF discontinued Current visit: Yes Status: Acute (2) GERD (gastroesophageal reflux disease): Problem details: Continue PPI Current visit: Yes Status: Acute (3) Hypothyroidism: Problem details: Will continue usual thyroid medication Current visit: Yes Status: Acute (4) History of heart valve replacement with mechanical valve: Problem details: Patient with known mechanical heart valve. I reviewed the records from Cardiology. He will continue on Lovenox until his INR is greater than 2.5. At that point he will continue on Coumadin. Coumadin has been restarted last evening. Current visit: Yes Status: Acute (5) Status post lumbar laminectomy: Problem details: Patient is recuperating postoperatively very well. No further nausea at this time. Current visit: Yes Status: Acute Quality VTE Deep Vein Thrombosis/Pulmonary Embolism Present on Admission: No
[2018-04-12 13:00] VITALS: BP 109/67; PULSE 60; RESP 18; TEMP 36.5; O2SAT 96
--- NOTE | 2018-04-12 14:28 | PC.NURSE ---
Patient ambulating with one person min assist, and tolerating well. Pain is well managed with ultram and tylenol per patient report. Dressing remains intact (small shadow drainage noted). Spoke with Dr. Solano over the phone, discharge available for activation tonight if patient able to void. Roland was dc'd at 1130 and tolerated well. Drinking plenty of fluids, brief on and urinal at bedside, monitor for spontaneous void post roland removal today. Continue to monitor. Call light within reach.
--- NOTE | 2018-04-12 14:37 | PT.IPTN ---
Current Diagnoses Hypothyroidism, unspecified (04/10/18) Hypotension, unspecified (04/10/18) Gastro-esophageal reflux disease without esophagitis (04/10/18) Unspecified osteoarthritis, unspecified site (04/10/18) Spinal stenosis, lumbar region with neurogenic claudication (04/10/18) Strain of muscle, fascia and tendon at neck level, subsequent encounter (04/10/18) Personal history of transient ischemic attack (TIA), and cerebral infarction without residual deficits (04/10/18) Personal history of other diseases of the respiratory system (04/10/18) Presence of prosthetic heart valve (04/10/18) Other specified postprocedural states (04/10/18) Surgery Performed Operation Date: 04/10/18 12:15 Actual Procedures p Laminectomy L1-2,L2-3(Not Applicable) - Daryl Solano MD Physical Therapy Treatment Note M2 PT-IP Current Condition Start: 04/10/18 16:19 Freq: NEEDED Status: Active Protocol: Document 04/11/18 10:07 AB (Rec: 04/11/18 12:38 AB [id number]) Physical Therapy Current Condition Current Condition Evaluation Date 04/11/18 Treatment Diagnosis s/o L1-2, L2-3 laminectomy; difficulty in walking Onset Date 04/10/18 Precautions Lumbar Precautions Log Roll No Twisting Limit Bending Lifting Restriction of 10 lbs Gait Belt above Incisional Area M3 PT-IP Subjective Start: 04/10/18 16:19 Freq: NEEDED Status: Active Protocol: Document 04/12/18 14:32 GGD (Rec: 04/12/18 14:37 GGD [email or web address]) Subjective Physical Therapy Visit Type Type Treatment Note Visit Start Time 14:15 Visit Stop Time 14:30 Total Visit Minutes 15 Number of PR[employer] BOARDS INSPECTOR Visits 3 Physical Therapy Visit Comments Patient Comments Pt willing to work with PT. Therapy Pain Assessment Pain When Pain Assessed During Mobility Pain Present Pain Present Pain Reported M4 PT-IP Mobility and Gait Start: 04/10/18 16:19 Freq: NEEDED Status: Active Protocol: Document 04/12/18 14:32 GGD (Rec: 04/12/18 14:37 GGD [email or web address]) PT-Transfer Assessment Sit to and From Stand Sit to and from Stand Contact Guard Assistance 1 Person Assistance Equipment Transfer Assistive Device Front Wheeled Walker Orthotic/Prosthetic Devices or Brace: No Transfers Transfer Destination Chair Transfer Ability Level of Assist Contact Guard Assistance Gait Assessment Gait Gait Assistance Required: Contact Guard Assist 1 Person Assist Distance (Feet) 200 Able to Maintain Weight Bearing Status Yes During Gait Assistive Devices Assistive Device Gait Belt Front Wheeled Walker Gait Deviations General Gait Pattern Decreased Stride Length Decreased Feet Clearance Factors Limiting Gait Function Factors Limiting Gait Function Decreased Activity Tolerance Decreased Strength Limited Range of Motion Pain Poor Balance Comments Gait Comments Pt needed cues for posture, and staying close to FWW. M5 PT-IP Objective Assessments Start: 04/10/18 16:19 Freq: NEEDED Status: Active Protocol: Document 04/11/18 10:07 AB (Rec: 04/11/18 12:38 AB [id number]) Orientation Orientation/Cognition Level of Alertness Alert Orientation Name Age Birthday Year Place Situation Language Function Ability No Deficits Noted Safety Awareness Understands Safety Issues Gross Range of Motion Lower Extremity ROM Assessment Within Functional Limits Strength Comments Strength Comments RLE 4/5 LLE 4-/5 Coordination Assessment Gross Coordination Gross Coordination WNL Sensation Assessment Comments Sensation Comments stated that he has on/off numbness on BLE that is one of the reasons for the back surgery but currently stated no sensation problems Muscle Tone Muscle Tone WNL Yes M6 PT-IP Treatment Start: 04/10/18 16:19 Freq: NEEDED Status: Active Protocol: Document 04/12/18 14:32 GGD (Rec: 04/12/18 14:37 GGD [email or web address]) Physical Therapy Treatment Education Education Provided Precautions Safety M7 PT-IP Assessment and Plan Start: 04/10/18 16:19 Freq: NEEDED Status: Active Protocol: Document 04/12/18 14:32 GGD (Rec: 04/12/18 14:37 GGD [email or web address]) PT Summary Assessment and Plan Summary Assessment Summary Pt able to progress gait distance without increase in pain. He did need cues for posture and safety. He was stable with gait. He is safe for home D/C when medically stable. Frequency of Treatment Frequency Of Treatment Twice a Day Recommendations To Nursing Amount of Assist Needed 1 Person Assist Discharge Recommendations PT Discharge Recommendations Home with Assistance Equipment Needed for Home Before Pt has FWW Discharge
--- NOTE | 2018-04-12 15:29 | OT.IP.TRT ---
Current Diagnoses Hypothyroidism, unspecified (04/10/18) Hypotension, unspecified (04/10/18) Gastro-esophageal reflux disease without esophagitis (04/10/18) Unspecified osteoarthritis, unspecified site (04/10/18) Spinal stenosis, lumbar region with neurogenic claudication (04/10/18) Strain of muscle, fascia and tendon at neck level, subsequent encounter (04/10/18) Personal history of transient ischemic attack (TIA), and cerebral infarction without residual deficits (04/10/18) Personal history of other diseases of the respiratory system (04/10/18) Presence of prosthetic heart valve (04/10/18) Other specified postprocedural states (04/10/18) Surgery Performed Operation Date: 04/10/18 12:15 Actual Procedures p Laminectomy L1-2,L2-3(Not Applicable) - Daryl Solano MD Occupational Therapy Treatment Note M2 OT-IP Current Condition Start: 04/11/18 16:26 Freq: Status: Active Protocol: Document 04/11/18 13:55 PJM (Rec: 04/11/18 16:44 PJM [id number]) Occupational Therapy Current Condition Current Condition Evaluation Date 04/11/18 Treatment Diagnosis decreased self care, functional mobility s/p L1-2, L2-3 lami Diagnosis Onset Date 04/10/18 Post Operative Precautions Lumbar Precautions Log Roll No Twisting Limit Bending Lifting Restriction of 10 lbs Gait Belt above Incisional Area M3 OT- IP Subjective and Pain Start: 04/11/18 16:26 Freq: Status: Active Protocol: Document 04/12/18 15:29 PJM (Rec: 04/12/18 15:52 PJM [id number]) OT- Subjective Occupational Therapy Visit Type Type Treatment Note Visit Start Time 14:50 Visit Stop Time 15:29 Total Visit Minutes 39 Notes Pt's s.o. and sister here for education this session. Pt has been cleared for d/c later today if he can urinate. Occupational Therapy Visit Comments Patient Comments I really want to go home today. Patient/Caregiver Goals to have less pain and resume independent living in his own home. OT Pain Assessment Pain When Pain Assessed After Treatment Pain Present Pain Present Pain Reported Location Lower Back Intensity 2 Scale Used Numeric (1 - 10) Description Aching Acute Pain Behaviors Guarding Management Techniques Distraction Re-positioning Timing of Activity with Medications M4 OT- IP ADL's Start: 04/11/18 16:26 Freq: Status: Active Protocol: Document 04/12/18 15:29 PJM (Rec: 04/12/18 15:52 [facility] [id number]) OT ADL-Dressing General Eval Upper Body Dressing Ability Independent Lower Body Dressing Ability Standby Assistance Areas Needing Assistance Pull-Over Shirt Underpants/Brief Pants/Shorts Assistive Devices Dressing Assistive Devices Long Handled Shoe Horn Line Erector Sock Aid Comments OT Dressing Comments Provided further education to pt/family re: lower body dressing techniques with color receiver to don undershorts and track pants. Pt normally uses hard sock aid at home to don RLE compression hose and can also use it to don L sock. Pt has slip on shoes and has long shoe horn at home. Pt indep with upper body dressing seated EOB. S.O. and sister can assist PRN at home as needed for next 2 weeks. OT ADL-Toileting Comments OT Toileting Comments Pt able to use urinal standing with FWW with SBA OT ADL-Bathing Comments OT Bathing Comments Pt declines shower today. Pt has all necessary bathroom safety equipt and s.o. will assist PRN at home. M5 OT- IP IADL's Start: 04/11/18 16:26 Freq: Status: Active Protocol: Document 04/12/18 15:29 PJM (Rec: 04/12/18 15:52 [facility] [id number]) OT-Instrumental Activities of Daily Living Deficits IADL Deficits Identified Deficits Home Safety Awareness Awareness of Need for Assistance at Home Good Awareness Ability to Problem Solve Emergency Able to Problem Solve Situations Medication Management Medication Management No Deficits Identified Money Management Money Management No Deficits Identified Meal Preparation Meal Preparation Caregiver Provides Assist Meal Preparation Comments S.O. and sister to assist until pt able Electronics Technician Apprentice Electronics Technician Apprentice Caregiver Provides Assist Electronics Technician Apprentice Comments Pt has it technical architect 1x week who assists with parking lot signaler and laundry PRN. S.O. assists with grocery shopping and some meal prep. Driving Driving Caregiver Provides Assist Driving Comments S.O. and sister to assist until pt able M6 OT- IP Functional Cognition Start: 04/11/18 16:26 Freq: Status: Active Protocol: Document 04/12/18 15:29 PJM (Rec: 04/12/18 15:52 [facility] [id number]) Cognitive Factors Limiting Selfcare Function Cognitive Ability Level of Alertness Alert Patient Orientation Name Age Birthday Month Date Year Day of Week Place Situation Attention Span Ability Capable of Focused Attention Capable of Sustained Attention Ability to Follow Commands Able to Follow One Step Commands Able to Follow Multi-Step Commands Memory Description No Deficits Noted Safety Awareness No Deficits Noted Problem Solving Ability No deficits Noted Cognitive Comments Cognitive Assessment Comments Pt verbalizes and demo's understanding ogf lumbar spine precautions M7 OT- IP Mobility and Balance Start: 04/11/18 16:26 Freq: Status: Active Protocol: Document 04/12/18 15:29 PJ (Rec: 04/12/18 15:52 [facility] [id number]) OT- Bed Mobility Assessment Rolling Type of Rolling Roll to Left Level of Assistance Independent Supine to Sit Supine to Sit Assist Independent Scooting Scooting to Edge of Bed Independent OT-Transfer Assessment Sit to and From Stand Sit to and from Stand Standby Assistance 1 Person Assistance Use of Upper Extremities Transfers Transfer Ability Standby Assistance 1 Person Assistance Technique Transfer Destination Car Chair Transfer Technique Stand Step Pivot Devices Transfer Assistive Devices Front Wheeled Walker Comments Mobility Comments Pt performs log rolling slowly. Provided education re: body mechanics for sit to stand, optimal chair selection and seat heights, car transfer sit and swivel technique and handy bar resources. OT- Gait Assessment Gait Gait Assistance Required: Standby Assistance Distance (Feet) 2 Assistive Devices Assistive Device Front Wheeled Walker Comments Gait Ability Comments bed to chair OT- Balance Assessment Sitting Balance and Reactions Static Sitting Balance Ability Good Dynamic Sitting Balance Ability Good Standing Balance and Reactions Static Standing Balance Ability Good Dynamic Standing Balance Ability Good Comments Other Balance Tests/Deviations/Treatment during lower body clothing M9 OT- IP Assessment and Plan Start: 04/11/18 16:26 Freq: Status: Active Protocol: Document 04/12/18 15:29 PJ (Rec: 04/12/18 15:52 [facility] [id number]) OT Summary Assessment and Plan Potential Rehabilitation Potential Good Summary Progress Towards Goals Safe For Discharge Assessment Summary All OT education completed today with pt and family as described above. Pt plans to d/c today if he can urinate. He will have 24 hr assist from s,o. and sister for first 2 weeks. If pt still here tomorrow, plan one more OT session for showering. Recommend home health OT services to increase independence/endurance in all self care and light IADLS such as meal prep, as pt normally lives alone. Goals Days to Meet Goals 1 Frequency of Treatment Frequency Of Treatment Once a Day Treatment Plan OT Treatment Plan ADL Training Functional Mobility Patient/Family Education Discharge Planning Discharge Recommendations OT Discharge Recommendations Home with Assistance Other Discharge Recommendations Home Health OT
[2018-04-12 16:00] VITALS: BP 139/86; PULSE 60; RESP 17; TEMP 36.4; O2SAT 97
--- NOTE | 2018-04-12 18:19 | PC.NURSE ---
patient discharged from facility with all belongings and discharge paperwork. Patient was a&ox4, and able to stand and ambulate to w/c. Patient was escorted from facility by RN and family.
--- NOTE | 2018-05-02 09:08 | PM.DS.1 ---
History of Present Illness Date Patient Seen: 04/12/18 Chief complaint: *OPB* lumbar [id number] Narrative: Hospital day 3, postop day 2 following L1-2, L2-[address] Solano. Patient has improved over the last 48 hr with blood pressure and urine output. No further nausea or vomiting. He has been seen by hospitalist for medical issues. He has remained stable postoperatively orthopedically. Gradually improved with physical therapy. Patient has been cleared by hospitalist for discharge. Patient ready for discharge home today after cleared by physical therapy. Discharge Providers Date of admission: 04/10/18 09:50 Primary care physician: Berry Hoyt MD Consults: 04/10/18 14:52 Consult to Occupational Therapy Evaluate & Treat Comment: Physician Instructions: Evaluate and treat Consult to Physical Therapy Evaluate & Treat Comment: Physician Instructions: Evaluate and Treat 04/11/18 09:24 Consult to Home Health Routine Comment: Reason For Exam: Nursing, P.T. 04/11/18 11:16 Consult to Physician Routine Comment: Consulting Provider: Pura Sawant Reason for consultation: hypotension, decreased urine output Discharge provider: Hector Chavez PA-C Discharge Date: 04/12/18 Summary Discharge Diagnosis: Status post L1-2, L2-3 laminectomy Hospital Course: Patient brought to hospital on 04/10/2018 for above noted surgery. Remained stable orthopedic LEEP. Did have some initial nausea and vomiting the night of surgery. Hypotension and decreased urine output on postop day 1. Evaluated by hospitalist and IV hydration. Patient gradually improved over the next 24 hr and was ready for discharge home on postop day 2. He is on Lovenox postoperatively bridging for his Coumadin. Status at Discharge Cognitive/behavioral status at discharge: Alert oriented no acute distress. Functional status at discharge: uses cane/walker Overall status at discharge: patient is progressing back to baseline Time Spent with Patient Less than 30 minutes Exam Vital Signs (past 8 hours): Oxygen Delivery Method Room Air Oxygen Flow Rate 0 Narrative Exam Narrative: Back. Dressing is dry without drainage or inflammation. Legs. No calf pain or swelling. Pulses symmetrical. Objective Labs Result Diagrams: 04/12/18 05:55 04/12/18 05:55 Discharge Plan Discharge Plan Patient Disposition: Home Health Service Discharge comment: f/u 1.5 wks Home health to check INR, continue on Lovenox until INR therapeutic (has lovenox at home) Discharge Med Rec/Prescriptions Prescriptions: New hydroxyzine pamoate 25 mg Capsule 25 mg PO Q4HR PRN (Reason: spasms) Qty: 20 RF: 0 tramadol 50 mg Tablet 50 mg PO Q4H PRN (Reason: Pain, Moderate (4-6)) Qty: 30 RF: 0 Continued ipratropium bromide 0.03 % [place],Non-Aerosol 2 spray INTRANASAL BID RF: 0 acetaminophen 325 mg Capsule 325 mg PO Q6H PRN (Reason: Pain) RF: 0 amoxicillin 500 mg Capsule 2,000 mg PO SEEINSTR RF: 0 warfarin 2 mg Tablet 3 mg PO SEEINSTR RF: 0 warfarin 2 mg Tablet 4 mg PO SEEINSTR RF: 0 metoprolol tartrate 25 mg Tablet 12.5 mg PO DAILY RF: 0 multivitamin Tablet 1 tab PO DAILY RF: 0 esomeprazole magnesium 40 mg Capsule,Delayed Release(Dr/Ec) 40 mg PO BID RF: 0 fluticasone-salmeterol [Advair Diskus] 100-50 mcg/dose Blister With Device 1 puff INHALATION DAILY RF: 0 levothyroxine 112 mcg Tablet 112 mcg PO DAILY RF: 0 Follow up/Referrals: Berry Hoyt MD [Primary Care Provider] - Provider Discharge Instructions Diet: Diet as Tolerated Activity: limited BLT 10 lbs max Skin/Wound/Dressing Care Report to your healthcare provider any signs of infection, such as:: chills, fever, night sweats, increased pain, unusual drainage and unusual redness Dressing: may change dressing POD#5 Visit Report/Discharge Packet Instructions: DI for Laminectomy, Hydroxyzine, Tramadol Discharge Data Primary Care Provider: Berry Hoyt Attending Provider: Daryl Solano Admit Date/Time: 04/10/18 09:50 Discharges patient from system. Discharge Date/Time: 04/12/18 18:00 Quality VTE Deep Vein Thrombosis/Pulmonary Embolism Present on Admission: No
== END 2018-04-12 18:00 | disposition home health service (06) | DRG 519 ==
LOC: OR 09:51 → AC 04-11 12:45
PROVIDERS: Internal Medicine; Admitting Provider Orthopaedic Surgery; PCP Internal Medicine; Visit Provider Orthopaedic Surgery
PROC: 00NY0ZZ Release Lumbar Spinal Cord, Open Approach (ICD-10-PCS; principal; 2018-04-10 12:15)
DX: M48.062 Spinal stenosis, lumbar region with neurogenic claudication (principal); I45.2 Bifascicular block; E03.9 Hypothyroidism, unspecified; Z95.0 Presence of cardiac pacemaker; Z95.2 Presence of prosthetic heart valve; Z79.01 Long term (current) use of anticoagulants; I49.5 Sick sinus syndrome; R11.2 Nausea with vomiting, unspecified; I95.9 Hypotension, unspecified; K21.9 Gastro-esophageal reflux disease without esophagitis
CPT/HCPCS: 36415; 72020; 76000; 80048; 85014; 85018; 85025; 85610; 97116; 97161; 97165; 97530; 97535; J0690; J1100; J1650; J1885; J2405; J2704; J3010; J7050